=== PATIENT | female | born 1950 | race Caucasian/White ===

== ENCOUNTER 2025-03-18 12:49 | Outpatient (CLI) | payer MEDICARE, MEDICAID, SELFPAY ==
--- NOTE | 2025-03-18 14:06 | ECG_ITS ---
Test Date: 2025-03-18 14:26:55 Measurements Intervals [place] Rate: 51 P: 34 NV: 154 QRS: 24 QRSD: 93 T: 30 QT: 444 QTc: 410 Interpretive Statements SINUS BRADYCARDIA INCOMPLETE RIGHT BUNDLE BRANCH BLOCK BASELINE ARTIFACT- I, II, AVR, AVL, AVF BORDERLINE ECG No previous ECG available for comparison Electronically Signed On 03-18-2025 14:43:54 CDT by Kvng High D.O.
--- OUTSIDE RECORDS SUMMARY | 2025-03-18 14:08 | XMS_ITS | Clinical Summary ---
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 Renal Failure Penicillins Hives,Rash,Unknown Medium 02/13/2014 Propoxyphene Diarrhea,Other (see Comments),Unknown,Vomiti ng Medium 02/13/2014 Medications aspirin EC 81 MG Tablet Delayed Response Take 81 mg by mouth daily. Active atorvastatin (LIPITOR) 40 MG Tablet Take 40 mg by mouth. Active levothyroxine (SYNTHROID) 100 MCG Tablet Take 100 mcg by mouth. 4 Active famotidine (PEPCID) 20 MG Tablet Take 20 mg by mouth. 1 Active lisinopril (PRINIVIL, ZESTRIL) 10 MG Tablet Take 10 mg by mouth daily. Active traMADol (ULTRAM) 50 MG Tablet Take 100 mg by mouth. Active DULoxetine (CYMBALTA) [address] Particles Take 60 mg by mouth. Active ARIPiprazole (ABILIFY) 10 MG Tablet Take 5 mg by mouth. Active metoprolol Succinate (TOPROL-XL) 50 MG TABLET SR 24 HR Take 50 mg by mouth. 5 Active ferrous sulfate (FeroSul) 325 (65 Fe) MG Tablet Take 325 mg by mouth daily. Active folic acid (FOLVITE) 1 MG Tablet Take 1 Tablet by mouth daily. 30 Tablet 1 5 Active Cyanocobalamin 1000 MCG/ML KitIndications :Vitamin B12 Deficiency 1,000 mcg by Injection route See Admin Instructions for 30 days. Indications: Inadequate Vitamin B12 6 Kit 5 02/29/20 25 Active Problems Problem Noted Date Diagnosed Date Iron deficiency anemia 01/01/2025 Hypertension Encounters Date Type Department Care Team Description 01/31/2025 Results Follow-Up [facility] [address] [place] [phone] Roque Roman, DO FOLIC ACID (FOLATE), FERRITIN, IRON W/ IRON BINDING CAPACITY [place], Additional followed-up results: 3 01/29/2025 2:15 PM CDT Lab [facility] [address] [phone] Lab, [facility] Iron deficiency anemia, unspecified iron deficiency anemia type; Anemia due to vitamin B12 deficiency, unspecified B12 deficiency type 01/29/2025 1:30 PM CDT Office Visit [facility] [address] [phone] Kimberlee Luis, GREENHOUSE LABORER, AUTOMOTIVE HEAVY MECHANIC Anemia due to vitamin B12 deficiency, unspecified B12 deficiency type (Primary Dx); Iron deficiency anemia, unspecified iron deficiency anemia type; Chronic fatigue 01/29/2025 Travel 01/08/2025 10:00 AM CDT Clinical Support [facility] [address] [id number] Iron deficiency anemia, unspecified iron deficiency anemia type (Primary Dx) 01/08/2025 Travel 01/03/2025 Results Follow-Up [facility] [address] [place] [phone] Roque Roman, DO FOLIC ACID (FOLATE), VITAMIN B12, IRON W/ IRON BINDING CAPACITY [place], Additional followed-up results: 3 01/03/2025 Telephone [facility] [address] [phone] Roque Roman DO 01/01/2025 2:45 PM CDT Lab [facility] [address] [phone] Lab, Cc [place] Iron deficiency anemia, unspecified iron deficiency anemia type 01/01/2025 2:30 PM CDT Office Visit [facility] [address] [phone] Rqoue Roman DO Iron deficiency anemia, unspecified iron deficiency anemia type (Primary Dx) 01/01/2025 Travel from Last 3 Months Family History Medical History Relation Name Comments Aneurysm Brother Cancer Father Cancer Mother Relation Name Status Comments Brother Father Mother Social History Tobacco Use Types Packs/Day Years Used Date Smoking Tobacco: Never Smokeless Tobacco: Never Tobacco Cessation:Counseling Given: Not Answered Alcohol Use Standard Drinks/Week Comments Not Currently 0 (1 standard drink = 0.6 oz pur e alcohol) Comments Unknown Sex and Gender Information Value Date Recorded Sex Assigned at Not on file 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 Gender Identity Not on file Sexual Orientation Not on file Last Filed Vital Signs Vital Sign Reading Time Taken Comments Blood Pressure 170/98 01/29/2025 1:48 PM CDT Pulse 69 01/29/2025 1:48 PM CDT Temperature 36.7 C (98 F) 01/29/2025 1:48 PM CDT Respiratory Rate 18 01/29/2025 1:48 PM CDT Oxygen Saturation 97% 01/29/2025 1:48 PM CDT Inhaled Oxygen Concentration - - Weight 72.5 kg (159 lb 12.8 oz) 01/29/2025 1:48 PM CDT Height 154.9 cm (5' 1) 01/29/2025 1:48 PM CDT Body Mass Index 30.19 01/29/2025 1:48 PM CDT Plan of Treatment Upcoming Encounters Date Type Department Care Team (Late st Contact Info) Description 03/26/2025 1:30 PM CDT Office Visit [facility] [address] [phone] Roque Roman, DO [address] [place] [address] Health Maintenance Due Date Last Done Comments DEXA Bone Density 1950 Hepatitis C Virus (HCV) Screening 1950 TdaP Immunization 1950 Colonoscopy 1997 Colorectal Cancer Screening 1997 Cologuard 2002 Immunochemical Fecal Occult Blood 2002 Pneumococcal Immunization (5 0+ years) (1 of 1 - PCV) 2002 Zoster Immunization (1 of 2) 2002 SARS-COV-2 Immunization (3 - season) 2024 02/02/2021, 01/05/2021 Mammogram 03/20/2025 03/20/2024, 03/20/2024 Influenza Immunization (Seas on Ended) 2025 07/24/2021 Respiratory Syncytial Virus (RSV) Immunization (Adult) (1 - 1-dose 75+ series) 2027 Hepatitis B Immunization Aged Out No longer eligible based on patient's age to complete this topic Human Papillomavirus (HPV) Immunization Aged Out No longer eligible b ased on patient's age to complete this topic Meningococcal Immunization (ACWY) Aged Out No longer eligible b ased on patient's age to complete this topic Rotavirus Immunization Aged Out No lo nger eligible based on patient's age to complete this topic Procedures Procedure Name Priority Date/Time Associated Diagnosis Comments CBC WITH AUTO DIFF OH Routine 01/29/2025 2:24 PM CDT CMP (COMPREHENSIVE METABOLIC PANEL) Routine 01/29/2025 2:24 PM CDT Iron deficiency anemia, unspecified iron deficiency anemia type Anemia due to vitamin B12 deficiency, unspecified B12 deficiency type VITAMIN B12 Routine 01/29/2025 2:24 PM CDT Iron deficiency anemia, unspecified iron deficiency anemia type Anemia due to vitamin B12 deficiency, unspecified B12 deficiency type IRON W/ IRON BINDING CAPACITY [place] Routine 01/29/2025 2:24 PM CDT Iron deficiency anemia, unspecified iron deficiency anemia type Anemia due to vitamin B12 deficiency, unspecified B12 deficiency type FERRITIN Routine 01/29/2025 2:24 PM CDT Iron deficiency anemia, unspecified iron deficiency anemia type Anemia due to vitamin B12 deficiency, unspecified B12 deficiency type FOLIC ACID (FOLATE) Routine 01/29/2025 2 :24 PM CDT Iron deficiency anemia, unspecified iron deficiency anemia type Anemia due to vitamin B12 deficiency, unspecified B12 deficiency type CBC WITH AUTO DIFF OH Routine 01/01/2025 2:50 PM CDT LACTATE DEHYDROGENASE (LD) Routine 01/01/2025 2:50 PM CDT Iron deficiency anemia, unspecified iron deficiency anemia type FERRITIN Routine 01/01/2025 2:50 PM CDT Iron deficiency anemia, unspecified iron deficiency anemia type IRON W/ IRON BINDING CAPACITY OH Routine 01/01/2025 2:50 PM CDT Iron deficiency anemia, unspecified iron deficiency anemia type VITAMIN B12 Routine 01/01/2025 2:50 PM CDT Iron deficiency anemia, unspecified iron deficiency anemia type FOLIC ACID (FOLATE) Routine 01/01/2025 2 :50 PM CDT Iron deficiency anemia, unspecified iron deficiency anemia type from Last 3 Months Results * IRON W/ IRON BINDING CAPACITY [place] (01/29/2025 2:24 PM CDT) Only the most recent of2 resultswithin the time period is included. IRON 71 50 - 212 ug/dL CANCER FOREMAN/PROJECT MANAGER [facility] UIBC 215 155 - 355 ug/dL CANCER FOREMAN/PROJECT MANAGER [facility] TIBC 286 261 - 478 ug/dl CANCER FOREMAN/PROJECT MANAGER [facility] % Saturation 25 20 - 50 % CANCER FOREMAN/PROJECT MANAGER [facility] 01/29/2025 2:24 PM CDT Narrative CANCER FOREMAN/PROJECT MANAGER [facility] - 01/29/2025 3:09 PM CDT Release to patient->Immediate us Kimberlee Luis APRN, AUTOMOTIVE HEAVY MECHANIC LAB SEND OUTS Final Result CANCER FOREMAN/PROJECT MANAGER [facility] [place] [address], [place] [phone] * (ABNORMAL) CBC WITH AUTO DIFF [place] (01/29/2025 2:24 PM CDT) Only the most recent of2 resultswithin the time period is included. WBC 9.2 4.0 - 10.0 10*3/uL CANCER FOREMAN/PROJECT MANAGER [facility] HGB 13.1 11.2 - 15.7 g/dL CANCER FOREMAN/PROJECT MANAGER [facility] HCT 41.8 34.1 - 44.9 % CANCER FOREMAN/PROJECT MANAGER [facility] PLT 295 163 - 369 10*3/uL CANCER FOREMAN/PROJECT MANAGER [facility] MPV 10.1 9.4 - 12.4 fL CANCER FOREMAN/PROJECT MANAGER [facility] RBC 4.66 3.93 - 5.22 10*6/uL CANCER FOREMAN/PROJECT MANAGER [facility] MCV 90 79 - 95 fL CANCER FOREMAN/PROJECT MANAGER [facility] MCH 28.1 25.6 - 32.2 pg CANCER FOREMAN/PROJECT MANAGER [facility] MCHC 31.3(L) 32.2 - 36.5 g/dL CANCER FOREMAN/PROJECT MANAGER [facility] RDW 19.6(H) 11.6 - 14.4 % CANCER FOREMAN/PROJECT MANAGER [facility] Neutrophils % 66.0 36.0 - 66.0 % CANCER FOREMAN/PROJECT MANAGER [facility] Lymphocytes % 19.8 19.0 - 40.0 % CANCER FOREMAN/PROJECT MANAGER [facility] Monocytes % 10.7 4.1 - 12.1 % CANCER FOREMAN/PROJECT MANAGER [facility] Eosinophils % 2.3 0.0 - 3.5 % CANCER FOREMAN/PROJECT MANAGER [facility] Basophils % 0.9 0.0 - 1.0 % CANCER FOREMAN/PROJECT MANAGER [facility] Absolute Neutrophils 6.0 1.4 - 6.6 10*3/uL CANCER FOREMAN/PROJECT MANAGER [facility] Absolute Lymphocytes 1.8 0.8 - 4.0 10*3/uL CANCER FOREMAN/PROJECT MANAGER [facility] Absolute Monocytes 1.0 0.2 - 1.2 10*3/uL CANCER FOREMAN/PROJECT MANAGER [facility] Absolute Eosinophils 0.2 0.0 - 0.4 10*3/uL CANCER FOREMAN/PROJECT MANAGER [facility] Absolute Basophils 0.1 0.0 - 0.1 10*3/uL CANCER FOREMAN/PROJECT MANAGER [facility] 01/29/2025 2:24 PM CDT us Kimberlee Luis APRN, CNP LAB SEND OUTS Final Result Performing Organization Address [facility] Co de Phone Number [facility]CER FOREMAN/[facility] [place] [address], [place] [phone] * VITAMIN B12 (01/29/2025 2:24 PM CDT) Only the most recent of2 resultswithin the time period is included. Vitamin B12 >1,500 180 - 914 pg/mL [facility] Blood 01/29/2025 2:24 PM CDT Narrative [facility]EM[facility] - 01/31/2025 10:42 AM CDT Release to patient->Immediate Kimberlee Luis APRN, CNP CHEMISTRY ORDERABLES Final Result Performing Organization Address [facility] de Phone Number [facility]CER FOREMAN[facility]PRO[facility] Cancer Care [address] [address], [place] [phone] * (ABNORMAL) FOLIC ACID (FOLATE) (01/29/2025 2:24 PM CDT) Only the most recent of2 resultswithin the time period is included. Folate 5.69(L) >=5.90 ng/mL [facility]EMAN[facility] Blood 01/29/2025 2:24 PM CDT Narrative [facility]EMAN[facility] - 01/31/2025 10:42 AM CDT Release to patient->Immediate IS THE PATIENT REQUIRED TO BE FASTING FOR 12 HOURS?->No us Kimberlee Luis APRN, AUTOMOTIVE HEAVY MECHANIC CHEMISTRY ORDERABLES Final Result Performing Organization Address City/[facility]/ZIP Co de Phone Number CANCER FOREMAN/PRO[facility] [address] [address], [place] [phone] * FERRITIN (01/29/2025 2:24 PM CDT) Only the most recent of2 resultswithin the time period is included. Ferritin 181 11 - 307 ng/mL [facility] Blood 01/29/2025 2:24 PM CDT Narrative [facility] - 01/31/2025 10:42 AM CDT Release to patient->Immediate Kimberlee Luis APRN, AUTOMOTIVE HEAVY MECHANIC CHEMISTRY ORDERABLES Final Result Performing Organization Address [facility] Co de Phone Number [facility] FOREMAN/PROJECT MANAGERCH[facility] Cancer Care [address] [address], [place] [phone] * (ABNORMAL) CMP (COMPREHENSIVE METABOLIC PANEL) (01/29/2025 2:24 PM CDT) Glucose 106(H) 70 - 105 mg/dL [facility] Blood Urea Nitrogen 12 7 - 25 mg/dL [facility] Creatinine 1.1 0.6 - 1.2 mg/dL [facility] Sodium 137 136 - 145 mEq/L [facility] Potassium 3.7 3.5 - 5.1 mEq/L [facility] Chloride 106 98 - 107 mEq/L [facility] Bicarbonate 27 21 - 31 mEq/L [facility] Total Bilirubin 0.4 0.3 - 1.0 mg/dL [facility] Alk. Phosphatase 85 34 - 104 U/L [facility] Aspartate Aminotransferase 13 13 - 39 U/L [facility] Alanine Aminotransferase 12 7 - 52 U/L [facility] Total Protein 6.8 6.4 - 8.9 g/dL [facility] Albumin 4.3 3.5 - 5.7 g/dL [facility] Calcium 9.7 8.6 - 10.3 mg/dL [facility]EM[facility] Anion Gap 7.7 7.0 - 15.0 mEq/L [facility] FOREMAN/PROJECT MANAGERCHI [facility] Globulin 2.5 2.0 - 3.5 g/dL [facility] EGFR 53(L) >60 ml/min/1. 73m2 CANCER FOREMAN/PROJECT MANAGER [facility] Comment: This eGFR is calculated using 2020 CKD-EPI Creatinine equation without race modifier based on the NKF-ASN task force recommendations Equation: tUSU=885*min(SCr/k,1)a*max(SCr/k,1)-1.200*0.9938Age*1.012 (if female), where SCr is serum creatinine, k is 0.7 for females and 0.9 for males, and a is -0.241 for females and -0.302 for males Blood 01/29/2025 2:24 PM CDT Narrative [facility] - 01/29/2025 3:09 PM CDT Release to patient->Immediate IS THE PATIENT REQUIRED TO BE FASTING FOR 8 HOURS?->No Kimberlee Luis APRN, AUTOMOTIVE HEAVY MECHANIC CHEMISTRY ORDERABLES Final Result Performing Organization Address [facility]/ZIP Co de Phone Number [facility] FOREMAN/PROJECT MANAGERCHI [facility] Cancer Care [place] [address] [address] [address], [place] [phone] * (ABNORMAL) LACTATE DEHYDROGENASE (LD) (01/01/2025 2:50 PM CDT) LDH 132(L) 140 - 271 U/L [facility] Blood 01/01/2025 2:50 PM CDT Narrative [facility] - 01/01/2025 4:12 PM CDT Release to patient->Immediate Roque Roman DO CHEMISTRY ORDERABLES Final Res ult CANCER FOREMAN/PRO[facility] Cancer [facility] [place] [address], [place] [phone] from Last 3 Months Insurance MEDICAID [place] MEDICARE C [employer] Care Teams Scuba Diver Relationship Specialty Start Date End Date Deborah Hale MD [address] [place] [id number] PCP - General Family Medicine 12/14/24 Roque Roman DO [address] [place] [phone] Consulting Physician Oncology 12/14/24
[2025-03-18 14:46] LABS: Basophils Absolute Auto 0.1 K/mm3 (0.0-0.1); Basophils Percent Auto 0.8 % (0.2-1.2); Eosinophils Absolute Auto 0.4 K/mm3 (0-0.3); Eosinophils Percent Auto 3.9 % (0-4.4); Hematocrit 39.7 % (37.0-47.0); Hemoglobin 12.4 g/dL (12.0-15.0); Immature Granulocyte Absolute 0.04 K/mm3 (0.00-0.031); Immature Granulocyte Percent A 0.4 % (0-0.5); Lymphocytes Absolute Auto 3.07 K/mm3 (0.9-3.2); Lymphocytes Percent Auto 29.7 % (18.3-44.2); Mean Corpuscular HGB Conc 31.2 g/dl (32-36); Mean Corpuscular Hemoglobin 29.7 pg (26-34); Mean Corpuscular Volume 95.2 fl (80-100); Mean Platelet Volume 10.2 fl (7.4-10.4); Monocytes Absolute Auto 1.2 K/mm3 (0.1-0.6); Monocytes Percent Auto 11.1 % (2.6-8.5); Neutrophils Absolute Auto 5.6 K/mm3 (1.3-6.7); Neutrophils Percent Auto 54.1 % (45.5-73.1); Platelet Count Result 290 k/mm3 (150-375); Red Blood Count 4.17 M/mm3 (4.2-5.4); Red Cell Distribution Width 15.4 % (11.5-14.5); White Blood Count 10.3 K/mm3 (4.5-10.0)
[2025-03-18 14:57] LABS: Hemoglobin A1C 5.3 % (<5.7)
[2025-03-18 15:13] LABS: Urine Cotinine NEGATIVE
[2025-03-18 15:53] LABS: MRSA (PCR) NOT DETECTED (NOT DETECTE)
[2025-03-18 16:05] LABS: Albumin Level 4.1 g/dL (3.5-5.1); Anion Gap 7 mmol/L (4-12); Blood Urea Nitrogen 9 mg/dL (7-17); Calcium 9.6 mg/dL (8.4-10.2); Carbon Dioxide 27 mmol/L (22-30); Chloride 105 mmol/L (98-107); Estimated Glomerular Filt Rate 54; Glucose 85 mg/dL (65-110); Potassium 3.6 mmol/L (3.4-5.0); Sodium 139 mmol/L (137-145)
== END 2025-03-18 12:50 | disposition home or self-care (01) ==
PROVIDERS: PCP Family Medicine; Visit Provider Orthopaedic Surgery
DX: Z01.818 Encounter for other preprocedural examination (principal); M25.562 Pain in left knee; R00.1 Bradycardia, unspecified; I45.19 Other right bundle-branch block
CPT/HCPCS: 80048; 80307; 82040; 83036; 85025; 86850; 86900; 86901; 87641; 93005

== ENCOUNTER → 2025-03-28 00:32 | Day surgery (SDC) | payer MEDICARE, MEDICAID, SELFPAY ==
[2025-03-18 13:20] VITALS: BP 170/78; PULSE 53; RESP 16; TEMP 36.5; O2SAT 97; BMI 30.2
--- NOTE | 2025-03-18 13:41 | PC.NURSE ---
Report to the Outpatient Waiting Room, entrance under the green pavilion located off [facility], at time __8:00AM____ on date ___03/28/25____. Planned Procedure Time: __10:00AM .? Time changes happen often and if your time is changed the preop area will call you the afternoon before. - You and your visitor will be asked to self-screen and do not enter if you have any COVID symptoms. Please call surgeon if you need to reschedule. - A mask is optional within the hospital at this time. Patients may have clear liquids (water, carbonated beverages, clear teas, apple juice) until 3 hours (7:00AM) prior to surgery with a maximum of 20 ounces. - No food from midnight until time of surgery and no smoking, or chewing tobacco (or any form of nicotine). No chewing gum, candy or mints. Take only the following medications with a SIP of water on the morning of surgery: ABILIFY, DULOXETINE, LEVOTHYROXINE MAY TAKE TRAMADOL NEEDED FOR PAIN DO NOT STOP ANY OF YOUR OTHER PRESCRIPTION MEDICATIONS PRIOR TO SURGERY EXCEPT THE FOLLOWING Hold all vitamins and supplements for 3 days per anesthesiologist.- LAST 03/24/25 Please no make-up, nail spanish, hairspray, perfume, deodorant, or body powder the day of surgery.? No jewelry (including any body piercings) or valuables the day of surgery, leave them at home.? Please take a shower or bath the night before, or the morning of, surgery with an antibacterial soap.? Wear comfortable, loose fitting clothing.? - Jewelry must be removed prior to entering the operating room.? Rings and piercings that are not removed may be cut off. - The hospital will not accept responsibility for valuables.? - Please leave all valuables, including medications, at home the day of surgery. If you are going home after surgery, a licensed cement mixer driver must drive you home.? - NO public transportation without another adult if you receive anesthesia. - We recommend that an adult stay with you for 24 hours following discharge. - We also recommend that you do not drive, make important decision, drink alcoholic beverages, or take any drugs that were not prescribed by your health care provider for at least 24 hours after your discharge time. Follow any additional instructions given to you from your surgeon. Telephone instructions given to ____PATIENT and asked if any additional questions and then verbalized understanding. Patient advised to call surgeon office or pre surgery nurse liaison [phone] if any additional questions.
[2025-03-18 14:00] VITALS: BP 174/80
--- OUTSIDE RECORDS SUMMARY | 2025-03-28 00:41 | XMS_ITS | Clinical Summary ---
Author Organization [facility] Address [address] [place] [address] Care Team Providers Care Flower Picker Name Role Phone Deborah Hale MD Primary Care Provider + Deborah Hale MD Unavailable [phone] Quinton Mcneill MD Unavailable [phone] Allergies Active Allergy Reactions Criticality Noted Date Comments Iodine Other (see comment) High 01/02/2021 Patient states she is allergic to contrast dye and causes kidney failure. Propoxyphene Nausea and Vomiting Medium 01/02/2021 Iodine Other (see comment) 08/18/2015 Renal Failure Penicillins Hives,Rash,Unknown Low 02/13/2014 Penicillins Hives Medium 01/02/2021 Propoxyphene Diarrhea,Nausea and Vomiting,Vomiting,Unknown 02/13/2014 Tape Contact Dermatitis 08/23/2018 Paper tape Blisters. Medications * This document contains information received from the source organization and may not represent a complete record from that organization. aspirin EC 81 MG tablet Take 1 tablet (81 mg total) by mouth daily. Active famotidine 20 MG tablet Take 1 tablet (20 mg total) by mouth 2 (two) times a day. 021 Active DULoxetine 60 MG capsule Take 1 capsule (60 mg total) by mouth daily. Active atorvastatin 40 MG tablet Take 1 tablet (40 mg total) by mouth nightly at bedtime. Active traMADol 50 MG tablet Take 2 tablets (100 mg total) by mouth 2 (two) times a day. Active acetaminophen- codeine 300-30 MG tablet as needed. 021 Active levothyroxine (SYNTHROID) 100 MCG tablet Take 1 tablet (100 mcg total) by mouth every morning. 024 Active ARIPiprazole (ABILIFY) 10 MG tablet Take 0.5 tablets (5 mg total) by mouth daily. Active lisinopril (PRINIVIL) 10 MG tablet Take 1 tablet (10 mg total) by mouth daily. Active ferrous sulfate, 65 mg elemental, 325 (65 FE) MG tablet Take 1 tablet (325 mg total) by mouth daily. Active metoprolol succinate ER (TOPROL-XL) 50 MG 24 hr tablet Take 1 tablet (50 mg total) by mouth daily. KEEP UPCOMING PROCEDURE 30 tablet 025 Active Sodium Sulfate-Mag Sulfate-KCl (SUTAB) 0797-343-053 MG TabIndications :Anemia, unspecified type,Dysphagia , unspecified type Take 12 tablets by mouth see administration instructions. Take 12 tablets at 5:00pm the evening before colonoscopy then take 12 tablets at 4:00am morning of colonoscopy. 24 tablet 025 Active Additional Information Patient not taking.Reported on 03/15/2025 metoprolol succinate ER (TOPROL-XL) 50 MG 24 hr tablet TAKE 1 TABLET (50 MG TOTAL) BY MOUTH DAILY. KEEP APPOINTMENT 7 tablet 025 2024 Discontinued Active Problems Problem Noted Date Diagnosed Date Anemia, unspecified type 03/12/2025 DANICA (obstructive sleep apnea) 11/08/2024 Dysphagia, unspecified type 02/09/2024 Constipation, unspecified constipation type 11/2023 Lower abdominal pain 02/09/2024 Achilles tendinitis of left lower extremity 04/10 Plantar fasciitis 05/04/2023 Nonrheumatic aortic valve stenosis 03/12/2021 Lumbar radiculopathy 01/02/2021 Status post right knee replacement 09/10/2020 Status post total hip replacement, right 020 Heartburn 10/10/2016 Overview (04/09/2020): Heartburn Stricture and stenosis of esophagus 10/10/2016 Overview (04/09/2020): Stricture and stenosis of esophagus Primary osteoarthritis of right hip 08/29/2015 Knee pain 08/11/2015 Shoulder pain 08/11/2015 Essential hypertension Dyslipidemia Resolved Problems Problem Noted Date Diagnosed Date Resolved Date Abdominal pain 10/10/2016 02/22/2024 Overview (04/09/2020): Abdominal pain, unspecified site Encounters Date Type Department Care Team Description 03/20/2025 Telephone [facility], [address] [address] Quinton Mcneill MD Information 03/19/2025 Travel 03/19/2025 Telephone [facility], [address] [address] Cornel Cotton MD Schedule Test 03/19/2025 Orders Only [facility], [address] [address] Cornel Cotton MD 03/15/2025 10:00 AM CDT - 03/15/2025 11:59 PM CDT Hospital Encounter [facility] Laboratory [address] [place] [address] Cornel Cotton MD Discharge Disposition: Home or Self Care (Routine Discharge) 03/15/2025 9:15 AM CDT Office Visit [facility] [address] [place] [address] Cornel Cotton MD Consult; Aortic Valve Stenosis; Mitral Valve Disorders 03/15/2025 Results Follow-Up [facility] [address] [place] [address] Mylene Luna, RN PRO BNP ([facility]) 03/15/2025 Travel 03/13/2025 Results Follow-Up [facility] [place] [address] Samantha Tyson RN BASIC METABOLIC PANEL, CBC W/DIFF AUTOMATED 03/12/2025 Telephone [facility] General Surgery [address], [address] [place] [address] Elsi Hartman MD Surgical Clearance 03/12/2025 Orders Only [facility] General [address], [address] [place] [address] Elsi Hartman MD 03/12/2025 Prep for Procedure [facility] General [address], [address] [place] [address] Elsi Hartman MD 03/11/2025 3:00 PM CDT Office Visit [facility] General [address], [address] [place] [address] Elsi Hartman MD Egd; Consult For Colonoscopy (Patient presents for EGD and colonoscopy consult due to anemia. ) 03/11/2025 Travel 03/07/2025 2:22 PM CDT Anesthesia Event [facility] [place] [address] Lei Luna MD Kodwani, Nand K, MD 03/07/2025 10:51 AM CDT - 03/07/2025 11:59 PM CDT Hospital Encounter [facility] [place] [address] Quinton Mcneill MD Discharge Disposition: Home or Self Care (Routine Discharge) 03/07/2025 10:51 AM CDT - 03/07/2025 4:08 PM CDT Hospital Encounter [facility] [place] [address] Ruth Estevez NP-C Quinton Mcneill MD Discharge Disposition: Home or Self Care (Routine Discharge) 03/07/2025 Travel 03/05/2025 Orders Only [facility] [place] [address] Quinton Mcneill MD 01/11/2025 12:45 PM CDT Office Visit [facility], [address] [place] [address] Ruth Estevez NP-C Aortic Valve Stenosis; Hypertension; Obstructive Sleep Apnea 01/11/2025 Travel from Last 3 Months Family History Medical History Relation Comments Cerebral aneurysm Daughter Cause of Cancer Father lung cancer Father Cancer Mother lung cancer Mother Breast Cancer Neg Hx Relation Status Comments Daughter Father (Age 71) Maternal Grandfather Maternal Grandmother Mother (Age 75) Paternal Grandfather Paternal Grandmother Social History Tobacco Use Types Packs/Day Years Used Date Smoking Tobacco: Never Passive Smoke Exposure: Past Smokeless Tobacco: Never Tobacco Cessation:Counseling Given: No Alcohol Use Standard Drinks/Week Comments Not Currently 0 (1 standard drink = 0.6 oz pur e alcohol) AUDIT-C Answer Date Recorded Frequency of Alcohol Consumption Never 08/15/2018 Average Number of Drinks Not on file 018 Frequency of Binge Drinking Not on file 03/2018 PHQ-2 Answer Date Recorded Patient Health Questionnaire-2 Score 0 03/11/2025 Exercise Vital Sign Answer Date Recorde d On average, how many days pe r week do you engage in moderate to strenuous exercise (like a brisk walk)? 0 days 01/02/2021 On average, how many minutes do you engage in exercise at this level? 0 min 01/02/2021 Education Answer Date Recorded What is the highest level of school you have completed or the highest degree you have received? High school graduate 01/02/2021 Comments No Sex and Gender Information Value Date Recorded Sex Assigned at Female 01/11/2023 2:36 PM CDT Legal Sex Female 10:02 PM CDT Gender Identity Female 01/11/2023 2:36 PM CDT Sexual Orientation Straight 01/11/2023 2: 36 PM CDT Occupation Industry Job Start Date Job End Date Not on file Not on file Not on file Not on file retired Not on file Not on file Not on file Last Filed Vital Signs Vital Sign Reading Time Taken Comments Blood Pressure 160/90 03/15/2025 9:06 AM CDT Pulse 59 03/15/2025 9:06 AM CDT Temperature 36.6 C (97.9 F) 03/11/2025 2:32 PM CDT Respiratory Rate 16 03/11/2025 2:32 PM CDT Oxygen Saturation 98% 03/11/2025 2:32 PM CDT Inhaled Oxygen Concentration - - Weight 72.6 kg (160 lb) 03/19/2025 3:55 PM CDT Height 154.9 cm (5' 1) 03/19/2025 3:55 PM CDT Body Mass Index 30.23 03/19/2025 3:55 PM CDT Plan of Treatment Upcoming Encounters Date Type Department Care Team (Latest Contact Info) Description 04/03/2025 2:00 PM CDT Appointment [facility] Ultrasound [address] [place] [address] Cornel Cotton MD [facility]. [address] [place] [address] 04/05/2025 12:00 PM CDT Office Visit [facility] [address] [place] [address] Lo Morris PA [address] [facility], [address] [place] [address] 04/09/2025 8:40 AM CDT Office Visit [facility] [address] [place] [id number] Hu Garibay DO [address] [facility] [address] [place] [address] 07/01/2025 7:30 AM CDT Hospital Encounter [facility] [address] [facility] [place] [place] [address] Elsi Hartman MD [address] [place] [address] [address] [place] [address] 07/01/2025 7:30 AM CDT Anesthesia Event [facility] [address] [place], [place] [address] [place] [address] Kodi Flynn MD [address] [place] [address] [place] [address] 07/01/2025 7:30 AM CDT - 07/01/2025 8:[address] [facility] [address] [place], [place] [address], [place] [address] Elsi Hartman MD [address] [place] [address] [address] [place] [address] EGD WITH DILAT STRICTURE Scheduled Procedures Name Priority Associated Diagnoses Date/Ti me EGD WITH DILAT STRICTURE Anemia, unspecified type Dysphagia, unspecified type 07/01/2025 7:30 AM CDT COLONOSCOPY Anemia, unspecified type Dysphagia, unspecified type 07/01/2025 7:30 AM CDT Health Maintenance Due Date Last Done Comments Colorectal Cancer Screening Colonoscopy (10 Years) 1952 Hepatitis C 1970 DTaP, Tdap and Td Vaccines ( 1 - Tdap) 1971 Pneumococcal Vaccine: 50+ Years (1 of 2 - PCV) 1971 Zoster Vaccines (1 of 2) 2002 RSV Immunization or 60+ Years (1 - Risk 60-74 years 1-dose series) 2012 Annual Medicare Wellness Visit 2017 Dexa Scan (General) 2017 COVID-19 Vaccine (3 - 2023-2 5 season) 2024 02/02/2021, 01/05/2021 Mammogram Screening 03/20/2026 03/20/2024 PHQ-2 (Physician Nice) Completed 03/11/2025 Meningococcal B Vaccine Aged Out No l onger eligible based on patient's age to complete this topic Meningococcal Vaccine Aged Out No kirsten davonte eligible based on patient's age to complete this topic RSV Immunizations Under 20 Months Aged Out No longer eligible b ased on patient's age to complete this topic Goals Goal Patient Goal Type Associated Problems Recent Progress Patient-Stated? Author Return home with Home health, caregivers, and family support General No Yahaira Perez, DATA SECURITY ANALYST Health - patient able to perform ADLs independently General No Yahaira Perez, DATA SECURITY ANALYST Autogenerated Goal Care Plan Autogenerated Problem No Tania Lopez, RN Medical Devices Implanted Type Area Box Finisher Device Identifier Shelf Expiration Date Model / Serial / Lot Component Tibial Triathlon 2 Knee Sterile Latex Free - [id number] Implanted:Qty: 1 on 09/10/2020 by Morgan Watt MD at [facility] Knee Components [employer] 12/13/2024 5536-B-2 00 / 5536-B-3 00 / [id number] Accolade Ii 127 Neck Angle Hip Stem Implanted:Qty: 1 on 04/09/2020 by Morgan Watt MD at [facility] Right: Hip [id number] 10/21/2024 / 6721-033 0 / [id number] Trident Ii Tritanium Clusterhole Acetabular Shell Implanted:Qty: 1 on 04/09/2020 by Morgan Watt MD at [facility] Right: Hip [id number] 10/31/2024 / 702-04-5 0D / [id number] A 6.5mm Low Profile Hex Screw Implanted:Qty: 1 on 04/09/2020 by Morgan Watt MD at [facility] Right: Hip [id number] 03/27/2024 / 7030-653 0 / 4H6 Mdm Liner Cementless Implanted:Qty: 1 on 04/09/2020 by Morgan Watt MD at [facility] Right: Hip [id number] 06/02/2024 / 626-00-3 8D / [id number] Lfit V40 Femoral Head Implanted:Qty: 1 on 04/09/2020 by Morgan Watt MD at [facility] Right: Hip [id number] 11/06/2023 / 6260-9-1 22 / [id number] Mdm X3 Insert For Mdm Liner Implanted:Qty: 1 on 04/09/2020 by Morgan Watt MD at [facility] Right: Hip [id number] 07/04/2024 / 1236-2-2 44 / [id number] Component Femoral 4 Knee Right Cruciate Retain Bead Triathlon Pa - [id number] Implanted:Qty: 1 on 09/10/2020 by Morgan Watt MD at [facility] [employer] [id number] 06/01/2025 5517-F-4 5517-F-4 04 / [id number] Triathlon X3 Tibial Bearing Insert-Cs Implanted:Qty: 1 on 09/10/2020 by Morgan Watt MD at [facility] [id number] 09/26/2024 / 5531-G-3 09-E / [id number] Explanted Type Area Box Finisher Device Identifier Shelf Expiration Date Model / Serial / Lot Pin [place] Bone Brandt 110 X 4 - [id number] Explanted:Qty: 1 on 09/10/2020 by Morgan Watt MD at [facility] Pin [employer] 09/26/2024 [id number] / / [id number] Pin Yusef Bone Brandt 140 X 4 - [id number] Explanted:Qty: 1 on 09/10/[address] [facility] Pin [employer] [id number] / / Pin Yusef Bone Brandt 170 X 4 - [id number] Explanted:Qty: 1 on 04/09/[address] [facility] Right: Hip [employer] [id number] / / Pin [place] Bone Brandt 170 X 4 - [id number] Explanted:Qty: 1 on 04/09/[address] [facility] Right: Hip [employer] [id number] / / Checkpoint Tibial Brandt Surgical - [id number] Explanted:Qty: 1 on 04/09/[address] [facility] Right: Hip [employer] [id number] / / Checkpoint Tibial Brandt Surgical - [id number] Explanted:Qty: 1 on 04/09/[address] [facility] Right: Hip [employer] [id number] / / Procedures Procedure Name Priority Date/Time Associated Diagnosis Comments PRO-BRAIN NATRIURETIC PEPTIDE Routine 03/15/2025 10:04 AM CDT Nonrheumatic aortic valve stenosis PROTHROMBIN TIME, VENOUS STAT 03/07/2025 12:15 PM CDT Nonrheumatic aortic valve stenosis CBC W/DIFF AUTOMATED Routine 03/07/2025 10:56 AM CDT Aortic valve stenosis BASIC METABOLIC PANEL Routine 03/07/2025 10:56 AM CDT Aortic valve stenosis MG SCREENING W ED CRISTIAN DIGI Routine 03/20/2024 1:51 PM CDT Encounter for screening mammogram for malignant neoplasm of breast from Last 3 Months or Most Recently Relevant to Health Maintenance Results * (ABNORMAL) PRO BNP ([facility]) (03/15/2025 10:04 AM CDT) PRO-B TYPE NATRIURETIC PEPTIDE 589(H) <125 PG/ML 03/15/2025 10:44 AM CDT [facility] Comment: CUT POINTS ESTABLISHED BY INTERNATIONAL COLLAB[employer] ON NT PROBNP (ICON) STUDY (2006). AGE INDEPENDENT: <300 PG/ML HAS A 99% NEGATIVE PREDICTIVE VALUE FOR EXCLUDING ACUTE CHF <50 YEARS: >450 PG/ML IS CONSISTENT WITH ACUTE CHF 50-75 YEARS: >900 PG/ML IS CONSISTENT WITH ACUTE CHF >75 YEARS: >1800 PG/ML IS CONSISTENT WITH ACUTE CHF IN PATIENTS WITH RENAL INSUFFICIENCY (GFR <60), >1200 PG/ML YIELDS A DIAGNOSTIC SENSITIVITY AND SPECIFICITY OF 89% AND 72% FOR ACUTE CHF. 03/15/2025 10:0 4 AM CDT Cornel Cotton MD LABORATORY Final Resul t [facility] ([facility] [address] [place] [address], [place] [phone] * PROTIME/INR, VENOUS (03/07/2025 12:15 PM CDT) PROTIME 11.4 10.2 - 12.9 SEC 03/07/2025 1:[address] [facility] INR 1.0 03/07/2025 1:[address] [facility] Comment: Recommended INR Therapeutic Goals: 2.0-3.0 Routine Therapy 2.5-3.5 Mechanical Prosthetic Valves (High Risk) 03/07/2025 12:1 5 PM CDT Quinton Mcneill MD LABORATORY Final Result Performing Organization Address City/[facility] Co de Phone Number [facility] [address] [place] [address], [place] [phone] * (ABNORMAL) BASIC METABOLIC PANEL (03/07/2025 10:56 AM CDT) GLUCOSE 103(H) 70 - 99 MG/DL 03/07/2025 11:[address] [facility] BUN 8 7 - 18 MG/DL 03/07/2025 11:[address] [facility] CREATININE S/P/B 1.07(H) 0.55 - 1.02 MG/DL 03/07/2025 11:[address] [facility] SODIUM S/P/B 140 136 - 145 MMOL/L 03/07/2025 11:[address] [facility] POTASSIUM S/P/B 4.0 3.5 - 5.1 MMOL/L 03/07/2025 11:[address] [facility] CHLORIDE S/P/B 109 97 - 115 MMOL/L 03/07/2025 11:[address] [facility] CO2 26.6 21 - 32 MMOL/L 03/07/2025 11:[address] [facility] CALCIUM S/P/B 9.7 8.5 - 10.1 MG/DL 03/07/2025 11:[address] [facility] ANION GAP 4.4 2 - 10 MMOL/L 03/07/2025 11:[address] [facility] BUN CREATININE RATIO 7.5 6 - 26 03/07/2025 11:[address] [facility] GFR ESTIMATE 55(L) >90 ML/MIN/1.7 3 M2 03/07/2025 11:[address] [facility] Comment: NOTE: eGFR is not calculated for patients <18 years of age or gender unknown. This is an estimated GFR calculation using the new CKD EPI creatinine equation without race and so does not require a correction factor for race. This estimated GFR should not be used for calculating drug doses. 03/07/2025 10:5 6 AM CDT us Quinton Mcneill MD LABORATORY Final Result [facility] [address] [place] [address], [place] [phone] * (ABNORMAL) CBC W/DIFF AUTOMATED (03/07/2025 10:56 AM CDT) WBC 9.47 4.5 - 11.0 x10'3/uL 03/07/2025 11:[address] [facility] RBC 4.45 4.20 - 5.40 x10'6/uL 03/07/2025 11:[address] [facility] HGB 13.1 12.0 - 16.0 G/DL 03/07/2025 11:[address] [facility] HCT 40.8 38.0 - 48.0 % 03/07/2025 11:[address] [facility] MCV 91.7 81.0 - 99.0 FL 03/07/2025 11:[address] [facility] MCH 29.4 27.0 - 31.0 PG 03/07/2025 11:[address] [facility] MCHC 32.1 32.0 - 36.0 G/DL 03/07/2025 11:[address] [facility] RDW 16.5(H) 11.5 - 14.5 % 03/07/2025 11:[address] [facility] PLT 307 130 - 400 x10'3/uL 03/07/2025 11:[address] [facility] MPV 9.9 9.3 - 12.2 FL 03/07/2025 11:[address] [facility] DIFFERENTIAL TYPE AUTOMATED DIFFERENTIAL 03/07/2025 11:[address] [facility] NEUTROPHILS % 60.8 % 03/07/2025 11:[address] [facility] LYMPHOCYTES % 27.0 % 03/07/2025 11:[address] [facility] MONOCYTES % 8.9 % 03/07/2025 11:[address] [facility] EOSINOPHILS 2.5 % 03/07/2025 11:[address] [facility] BASOPHILS 0.6 % 03/07/2025 11:[address] [facility] IMMATURE GRANS % 0.2 % 03/07/20 11:[address] [facility] ABS. NEUTROPHILS 5.75 1.80 - 7.70 x10'3/uL 03/07/2025 11:[address] [facility] ABS. LYMPHOCYTES 2.56 1.00 - 4.80 x10'3/uL 03/07/2025 11:[address] [facility] ABS. MONOCYTES 0.84 0.24 - 0.86 x10'3/uL 03/07/2025 11:[address] [facility] ABS. EOSINOPHILS 0.24 0.04 - 0.36 x10'3/uL 03/07/2025 11:[address] [facility] ABS. BASOPHILS 0.06 0.01 - 0.08 x10'3/uL 03/07/2025 11:[address] [facility] ABS. IMMATURE GRANULOCYTES 0.02 0.00 - 0.49 x10'3/uL 03/07/2025 11:[address] [facility] 03/07/2025 10:5 6 AM CDT us Quinton Mcneill MD LABORATORY Final Result [facility] [address] [place] [address], [place] [phone] * MG SCREENING W ED CRISTIAN DIGI (03/20/2024 1:51 PM CDT) Anatomical Region Laterality Modality Breast Bilateral Mammography 03/20/2024 4:49 PM CDT Impressions 03/20/2024 4:53 PM CDT ===== IMPRESSION: ===== 1. Stable mammographic appearance with no new findings to suggest malignancy in either breast. Assessment: ACR BI-RADS 2 - BENIGN FINDING(S) Recommendation: 1:Routine Screening Bilateral Comments: Ordered By: DEBORAH VICTORIA Interpreted By: Evelia Bolanos, 03/20/2024 4:49 PM Narrative 03/20/2024 4:53 PM CDT EXAMINATION: Digital bilateral screening mammogram with 3-D tomosynthesis EXAM DATE/TIME: 03/20/2024 1:35 PM REASON FOR EXAM: encounter for screening mammogram COMPARISON: 06/13/2018. 09/16/2011. Technique: Digital screening mammography of both breasts was performed in addition to 3-D Tomosynthesis technique. This study was read with the assistance of a computer-aided detection system. Tissue density: There are scattered areas of fibroglandular density. Findings: There is no new focal asymmetry, dominant mass lesion, area of skin thickening, or cluster of suspicious appearing calcifications in either breast to suggest malignancy. Deborah Victoria MD MAMMO Final Re sult from Last 3 Months or Most Recently Relevant to Health Maintenance Additional Health Concerns Active Problems Noted Date Diagnosed Date Autogenerated Problem 03/21/2025 Insurance MEDICAID MEDICAID [facility] Advance Directives * Full Code (Latest Code Status on File) Date Activated Date Inactivated Comments 07/28/2021 10:49 AM 07/28/2021 5:56 PM * Full Code Date Activated Date Inactivated Comments 09/10/2020 2:44 PM 09/12/2020 8:30 PM * Full Code Date Activated Date Inactivated Comments 04/09/2020 1:41 PM 04/13/2020 4:57 PM Care Teams Flower Picker Relationship Specialty Start Date End Date Deborah Hale MD [address] [place] [address] PCP - General FAMILY PRACTICE 01/12/21 Deborah Hale MD [address] [place] [address] 01/12/21 Quinton Mcneill MD [facility]. [address] [address] [place] [employer] CARDIOVASCULAR DISEASE 08/14/18
--- OUTSIDE RECORDS SUMMARY | 2025-03-28 00:41 | XMS_ITS | Encounter Summary ---
Author Organization [facility] Address [facility] [place] [address] Care Team Providers Care Policy And Planning Manager Name Role Phone Deborah Hale MD Primary Care Provider + Deborah Hale MD Primary Care Provider + Deborah Hale MD Unavailable [phone] Quinton Mcneill MD Unavailable [phone] Encounter Details Date Type Department Care Team (Late st Contact Info) Description 03/20/2020 Telephone [facility] Day Services [address] [place] [address] [place] [address] [facility] [address] [place] [address] Social History Tobacco Use Types Packs/Day Years Used Date Smoking Tobacco: Never Smokeless Tobacco: Never Alcohol Use Standard Drinks/Week Comments No 0 (1 standard drink = 0.6 oz pur e alcohol) AUDIT-C Answer Date Recorded Frequency of Alcohol Consumption Never 08/15/2018 Average Number of Drinks Not on file 018 Frequency of Binge Drinking Not on file 03/2018 Comments No Sex and Gender Information Value Date Recorded Sex Assigned at Female 01/11/2023 2:36 PM CDT Legal Sex Female 10:02 PM CDT Gender Identity Female 01/11/2023 2:36 PM CDT Sexual Orientation Straight 01/11/2023 2: 36 PM CDT Occupation Industry Job Start Date Job End Date Not on file Not on file Not on file Not on file COVID-19 Exposure Response Date Recorded In the last month, have you been in contact with someone who was confirmed or suspected to have Coronavirus / COVID-19? No / Unsure 03/17/2020 4:12 PM CDT documented as of this encounter Plan of Treatment Upcoming Encounters Date Type Department Care Team (Latest Contact Info) Description 04/03/2025 2:00 PM CDT Appointment [facility] [address] [place] [address] Cornel Cotton MD Three [facility]. [address] [place] [address] 04/05/2025 12:00 PM CDT [facility] [address] [place] [address] Lo Morris PA 3 [facility], [address] [place] [address] 04/09/2025 8:40 AM CDT Office Visit [facility] Medical Group Multispecialty Care - [facility] [address] [facility] [address] [place] [address] Hu Garibay DO [address] [facility] [address] [place] [address] 07/01/2025 7:30 AM CDT Hospital Encounter [facility] [address] [place] [address] Elsi Hartman MD [address] [place] [address] 07/01/2025 7:30 AM CDT Anesthesia Event [facility] [address] [place] [address] Kodi Flynn MD [address] [place] [address] 07/01/2025 7:30 AM CDT - 07/01/2025 8:33 AM CDT Surgery [facility] [address] [place] [address] Elsi Hartman MD [address] [place] [address] EGD WITH DILAT STRICTURE Scheduled Procedures Name Priority Associated Diagnoses Date/Ti me EGD WITH DILAT STRICTURE Anemia, unspecified type Dysphagia, unspecified type 07/01/2025 7:30 AM CDT COLONOSCOPY Anemia, unspecified type Dysphagia, unspecified type 07/01/2025 7:30 AM CDT documented as of this encounter Visit Diagnoses Not on filedocumented in this encounter Additional Health Concerns Infection Onset Date Last Indicated Resolved Time COVID-19 Rule Out 09/07/2020 09/07/2020 09/08/2020 3:02 PM STATOR PLATE WASHER documented as of this encounter Care Teams Policy And Planning Manager Relationship Specialty Start Date End Date Deborah Hale MD [address] [place] [address] PCP - General 11/18/15 01/11/21 Deborah Hale MD [address] [place] [address] PCP - General FAMILY PRACTICE 01/12/21 Deborah Hale MD [address] [place] [address] 01/12/21 Quinton Mcneill MD Three [facility]. 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
--- OUTSIDE RECORDS SUMMARY | 2025-03-28 00:41 | XMS_ITS | Encounter Summary ---
Author Organization [facility] Address [facility] [place] [address] Care Team Providers Care Order Clerk Name Role Phone Deborah Hale MD Primary Care Provider + Deborah Hale MD Primary Care Provider + Deborah Hale MD Unavailable [phone] Quinton Mcneill MD Unavailable [phone] Encounter Details Date Type Department Care Team (Late st Contact Info) Description 01/16/2019 Abstract [facility] at [address] [address] William Nye MA Social History Tobacco Use Types Packs/Day Years Used Date Smoking Tobacco: Never Smokeless Tobacco: Never Alcohol Use Standard Drinks/Week Comments No 0 (1 standard drink = 0.6 oz pur e alcohol) AUDIT-C Answer Date Recorded Frequency of Alcohol Consumption Never 08/15/2018 Average Number of Drinks Not on file 018 Frequency of Binge Drinking Not on file 03/2018 Comments Unknown Sex and Gender Information Value Date Recorded Sex Assigned at Female 01/11/2023 2:36 PM CDT Legal Sex Female 10:02 PM CDT Gender Identity Female 01/11/2023 2:36 PM CDT Sexual Orientation Straight 01/11/2023 2: 36 PM CDT Occupation Industry Job Start Date Job End Date Not on file Not on file Not on file Not on file documented as of this encounter Plan of Treatment Upcoming Encounters Date Type Department Care Team (Latest Contact Info) Description 04/03/2025 2:00 PM CDT Appointment [facility] [address] [place] [address] Cornel Cotton MD Three [facility]. [address] [place] [address] 04/05/2025 12:00 PM CDT Office Visit [facility] [address] [place] [address] Lo Morris PA 3 [facility], [address] [place] [address] 04/09/2025 8:40 AM CDT Office Visit [facility] Medical Group Multispecialty Care - [facility] 3 [facility] [address] [place] [address] Hu Garibay DO 3 [facility] [address] [place] [address] 07/01/2025 7:30 AM CDT Hospital Encounter [facility] [address] [place] [address] Elsi Hartman MD [address] [facility] 175 [place] [address] 07/01/2025 7:30 AM CDT Anesthesia Event [facility] [address] [facility] [place] [address] Kodi Flynn MD [address] [place] [address] [place] [address] 07/01/2025 7:30 AM CDT - 07/01/2025 8:33 AM CDT Surgery [facility] [address] [place] [address] Elsi Hartman MD [address] [place] [address] EGD WITH DILAT STRICTURE Scheduled Procedures Name Priority Associated Diagnoses Date/Ti me EGD WITH DILAT STRICTURE Anemia, unspecified type Dysphagia, unspecified type 07/01/2025 7:30 AM CDT COLONOSCOPY Anemia, unspecified type Dysphagia, unspecified type 07/01/2025 7:30 AM CDT documented as of this encounter Procedures Procedure Name Priority Date/Time Associated Diagnosis Comments CBC (OUTSIDE LAB) Routine 12/15/2018 COMPREHENSIVE METABOLIC PANEL Routine 12/15/2018 LIPID PANEL Routine 12/15/2018 THYROXINE, FREE (FT4) Routine 12/15/2018 THYROID STIM HORMONE TSH Routine 12/15/2018 VITAMIN D, 25 OH Routine 12/15/2018 documented in this encounter Results * VITAMIN D, 25 OH (12/15/2018) Pathologist [facility] VITAMIN D 25 HYDROXY S/P/B 24 12/15/2018 us Doc [facility]ORAT[facility] Final Result * CBC (OUTSIDE LAB) (12/15/2018) Pathologist [facility] WBC 7.7 HGB 13.6 HCT 41.3 PLT 330 12/15/2018 us Doc [facility] LAB-OUTSIDE/ABSTRACTED Final Result * THYROXINE, FREE (FT4) (12/15/2018) FREE T4 1.27 12/15/2018 us Doc [facility]ORAT[facility] Final Result * THYROID STIM HORMONE, TSH (12/15/2018) TSH 0.489 12/15/2018 us Doc [facility]ORAT[facility] Final Result * LIPID PANEL (12/15/2018) Pathologist [facility] CHOLESTEROL 191 HDL 39 TRIGLYCERIDES 251 NON HDL CHOLESTEROL 152 LDL (CALCULATED) 102 12/15/2018 us Doc [facility]AT[facility] Final Result * (ABNORMAL) COMPREHENSIVE METABOLIC PANEL (12/15/2018) SODIUM S/P/B 144 POTASSIUM S/P/B 3.7 CO2 28 CHLORIDE S/P/B 105 GLUCOSE 87 mg/dL CALCIUM S/P/B 9.4 BUN 14 CREATININE S/P/B 1.23(A) 0.5 - 1.0 EGFR AFR. AMER. 53 <=90 EGFR NON-AFR. AMER. 46 <=90 ALKALINE PHOSPHATASE S/P/B 112 ALT 17 AST 17 BILIRUBIN TOTAL S/P/B 0.5 ALBUMIN S/P/B 3.7 3.5 - 5.0 TOTAL PROTEIN S/P/B 7.3 12/15/2018 us Doc [facility] Final Result documented in this encounter Visit Diagnoses Not on filedocumented in this encounter Additional Health Concerns Infection Onset Date Last Indicated Resolved Time COVID-19 Rule Out 09/07/2020 09/07/2020 09/08/2020 3:02 PM ELEMENTARY SPECIAL EDUCATION TEACHER documented as of this encounter Care Teams Order Clerk Relationship Specialty Start Date End Date Deborah Hale MD [address] [place] [address] PCP - General 11/18/15 01/11/21 Deborah Hale MD [address] [place] [address] PCP - General FAMILY PRACTICE 01/12/21 Deborah Hale MD [address] [place] [address] 01/12/21 Quintno Mcneill MD [facility]. [address] [address] Johnathon Class 1 Owner Operator CARDIOVASCULAR DISEASE 08/14/18 documented as of this encounter
--- OUTSIDE RECORDS SUMMARY | 2025-03-28 00:41 | XMS_ITS | Encounter Summary ---
Author Organization [facility] Address [facility] [place] [address] Care Team Providers Care Refuse Collector Name Role Phone Deborah Hale MD Primary Care Provider + Deborah Hale MD Primary Care Provider + Deborah Hale MD Unavailable [phone] Quinton Mcneill MD Unavailable [phone] Encounter Details Date Type Department Care Team (Late st Contact Info) Description 09/01/2020 Prep for Procedure [facility] One Day Services [address] [place] [address] Morgan Watt MD [address] [address] Social History Tobacco Use Types Packs/Day Years [...] have Coronavirus / COVID-19? No / Unsure 09/03/2020 2:06 PM LICENSED MENTAL HEALTH COUNSELOR documented as of this encounter Functional Status * RETIRED Are you deaf or do you have serious difficulty hearing Answer Date of Assessment Author Status No 04/09/2020 6:44 PM CDT Activ e * RETIRED Are you blind or do you have serious difficulty seeing, even when wearing glasses? Answer Date of Assessment Author Status No 04/09/2020 6:44 PM CDT Activ e * Do you have serious difficulty walking or climbing stairs? Answer Date of Assessment Author Status Yes 04/09/2020 6:44 PM CDT Chari Vargas RN Active * Do you have difficulty dressing or bathing? Answer Date of Assessment Author Status Yes 04/09/2020 6:44 PM CDT Chari Vargas RN Active * Because of a physical, mental, or emotional condition, do you have difficulty doing errands alone such as visiting a doctor's office or shopping? Answer Date of Assessment Author Status Yes 04/09/2020 6:44 PM CDT Chari Vargas RN Active documented as of this encounter Mental Status * Because of a physical, mental, or emotional condition, do you have serious difficulty concentrating, remembering, or making decisions? Answer Entry Date Author Status No 04/09/2020 6:44 PM CDT Chari Vargas RN Active documented in this encounter Plan of Treatment Upcoming Encounters Date Type Department Care Team (Latest Contact Info) Description 04/03/2025 2:00 PM CDT Appointment [facility] [address] [place] [address] Cornel Cotton MD [facility]. [address] [address] 04/05/2025 12:00 PM CDT [facility] [address] [place] [address] Lo Morris PA 3 [facility], [address] [place] [address] 04/09/2025 8:40 AM CDT Office Visit [facility] Medical Group Multispecialty Care - [facility] [address] [facility] [address] [place] [address] Hu Garibay DO [address] [facility] [address] [place] [address] 07/01/2025 7:30 AM CDT Hospital Encounter [facility] OR [address] [place] [address] Elsi Hartman MD [address] [place] [address] [address] [place] [address] 07/01/2025 7:30 AM CDT Anesthesia Event [facility] [address] [place] [address] Kodi Flynn MD [address] [place] [address] [place] [address] 07/01/2025 7:30 AM CDT - 07/01/2025 8:33 AM CDT Surgery [facility] OR [address] [place] [address] Elsi Hartman MD [address] [place] [address] [address] [place], [place] [address] EGD WITH DILAT STRICTURE Scheduled Procedures Name Priority Associated Diagnoses Date/Ti me EGD WITH DILAT STRICTURE Anemia, unspecified type Dysphagia, unspecified type 07/01/2025 7:30 AM CDT COLONOSCOPY Anemia, unspecified type Dysphagia, unspecified type 07/01/2025 7:30 AM CDT documented as of this encounter Goals Goal Patient Goal Type Associated Problems Recent Progress Patient-Stated? Author Return home with Home health, caregivers, and family support General No Mundo Pereznila Espinal, BEZEL CUTTER documented as of this encounter Results * PRE-SURGICAL/PRE-PROCEDURE CORONAVIRUS (COVID 19) (09/07/2020 9:16 AM LICENSED MENTAL HEALTH COUNSELOR) CORONAVIRUS SARS COV 2 PCR (RESP) NOT DETECTED NOT DETECTED 09/08/2020 3:01 PM LICENSED MENTAL HEALTH COUNSELOR [employer] [facility] Comment: A Not Detected (negative) test result for this test means that SARS- CoV-2 RNA was not present in the specimen above the limit of detection. A negative result does not rule out the possibility of COVID-19 and should not be used as the sole basis for treatment or patient management decisions. If COVID-19 is still suspected, based on exposure history together with other clinical findings, re-testing should be considered in consultation with public health authorities. Laboratory test results should always be considered in the context of clinical observations and epidemiological data in making a final diagnosis and patient management decisions. Please review the Fact Sheets and FDA authorized labeling available for health care providers and patients using the following websites: https://www.[employer].Remark/home/Covid-19/HCP/NAAT/fact-sheet2 https://www.[employer].Remark/home/Covid-19/Patients/NAAT/ fact-sheet2 This test has been authorized by the FDA under an Emergency Use Authorization (EUA) for use by authorized laboratories. Due to the current public health emergency, [facility] is receiving a high volume of samples from a wide variety of swabs and media for COVID-19 testing. In order to serve patients during this public health crisis, samples from appropriate clinical sources are being tested. Negative test results derived from specimens received in non-commercially manufactured viral collection and transport media, or in media and sample collection kits not yet authorized by FDA for COVID-19 testing should be cautiously evaluated and the patient potentially subjected to extra precautions such as additional clinical monitoring, including collection of an additional specimen. Methodology: Nucleic Acid Amplification Test (NAAT) includes RT-PCR or TMA Additional information about COVID-19 can be found at the [facility] website: www.[employer].Remark/Covid19. Test performed at [facility] [address] [address] [facility] [place] [address] Director: LAVERNE EUGENE DO,MPH FIRST TEST NO 09/07/2020 9:06 AM [facility] EMPLOYED IN HEALTHCARE NO 09/07/2020 9:06 AM [facility] SYMPTOMATIC DEFINED BY CDC NO 09/07/2020 9:06 AM [facility] DATE OF SYMPTOM ONSET UNKNOWN 09/07/2020 10:20 AM [facility] HOSPITALIZATION STATUS NO 09/07/2020 9:06 AM [facility] PATIENT IN ICU NO 09/07/2020 9:06 AM [facility] RESIDENT OF [facility] NO 09/07/2020 9:06 AM [facility] UNKNOWN 09/07/2020 10:20 AM [facility] PATIENT'S RACE WHITE OR 09/07/2020 9:06 AM [facility] ETHNICITY NONHISPANIC 09/07/2020 9:06 AM [facility] SOURCE (QST) NASOPHARYNGEAL SWAB 09/07/2020 9:06 AM [facility] NASOPHARYNGEAL SWAB / Unknown 09/07/2020 9:16 AM LICENSED MENTAL HEALTH COUNSELOR us Morgan Watt MD MICROBIOLOGY - GENERAL ORDERA BLES Final Result [facility] [address] [place] [address], [place] [phone] [facility] [address] [place] [address], documented in this encounter Visit Diagnoses Diagnosis Preop testing- Primary Preoperative examination, unspecified Anemia, unspecified type Dysphagia, unspecified type documented in this encounter Additional Health Concerns Infection Onset Date Last Indicated Resolved Time COVID-19 Rule Out 09/07/2020 09/07/2020 09/08/2020 3:02 PM LICENSED MENTAL HEALTH COUNSELOR documented as of this encounter Care Teams Refuse Collector Relationship Specialty Start Date End Date Deborah Hale MD [address] [place] [address] PCP - General 11/18/15 01/11/21 Deborah Hale MD [address] [place] [address] PCP - General FAMILY PRACTICE 01/12/21 Deborah Hale MD [address] [place] [address] 01/12/21 Quinton Mcneill MD [facility]. [address] [address] Murray Auto Transmission Mechanic CARDIOVASCULAR DISEASE 08/14/18 documented as of this encounter
--- OUTSIDE RECORDS SUMMARY | 2025-03-28 00:41 | XMS_ITS | Encounter Summary ---
Author Organization [facility] Address [facility] [place] [address] Care Team Providers Care Telegraph Inspector Name Role Phone Deborah Hale MD Primary Care Provider + Deborah Hale MD Unavailable [phone] Quinton Mcneill MD Unavailable [phone] Encounter Details Date Type Department Care Team (Late st Contact Info) Description 03/13/2025 Results Follow-Up [facility] [place] [address] Samantha Tyson, [place] [address] BASIC METABOLIC PANEL, CBC W/DIFF AUTOMATED Social History Tobacco Use Types Packs/Day Years Used Date Smoking Tobacco: Never Passive Smoke Exposure: Past Smokeless Tobacco: Never Alcohol Use Standard Drinks/Week Comments Not Currently [...] on file documented as of this encounter Functional Status [...] Assessment Author Status Yes 04/09/2020 6:44 PM MARKT Chari Vargas RN Active * Because of a physical, mental, or emotional condition, do you have difficulty doing errands alone such as visiting a doctor's office or shopping? Answer Date of Assessment Author Status Yes 04/09/2020 6:44 PM MARKT Chari Vargas RN Active documented as of this encounter Mental Status * Because of a physical, mental, or emotional condition, do you have serious difficulty concentrating, remembering, or making decisions? Answer Entry Date Author Status No 04/09/2020 6:44 PM MARKT Chari Vargas RN Active documented in this encounter Plan of Treatment Upcoming Encounters Date Type Department Care Team (Latest Contact Info) Description 04/03/2025 2:00 PM CDT Appointment [facility] [address] [place] [address] Cornel Cotton MD [place] [address] [place] [address] 04/05/2025 12:00 PM CDT Office Visit [facility] [address] [place] [address] Lo Morris PA 3 [facility], [address] [place] [address] 04/09/2025 8:40 AM CDT Office Visit [facility] Medical Group Multispecialty Care - [facility] [address] [place] [address] Hu Garibay DO 3 [facility] [address] [place] [address] 07/01/2025 7:30 AM CDT Hospital Encounter [facility] [address] [place] [address] Elsi Hartman MD [address] [place] [address] 07/01/2025 7:30 AM CDT Anesthesia Event [facility] [address] [place] [address] Kodi Flynn MD [address] [place] [address] [place] [address] 07/01/2025 7:30 AM CDT - 07/01/2025 8:33 AM CDT Surgery [facility] [address] [place] [address] Elsi Hartman MD [address] [place] [address] 175 [place] [address] EGD WITH DILAT STRICTURE Scheduled Procedures Name [...] and family support General No Yahaira Perez, DIRECTOR [employer] Health - patient able to perform ADLs independently General No Yahaira Perez, DIRECTOR [employer] Autogenerated Goal Care Plan Autogenerated Problem No Tania Lopez RN documented as of this encounter Visit Diagnoses Not on filedocumented in this encounter Additional Health Concerns Active Problems Noted Date Diagnosed Date Autogenerated Problem 03/21/2025 Assessment Noted Time PHQ-9 Depression Total Score: 0 03/11/20 25 2:31 PM CDT documented as of this encounter Care Teams Telegraph Inspector Relationship Specialty Start Date End Date Deborah Hale MD [address] [place] [address] PCP - General FAMILY PRACTICE 01/12/21 Deborah Hale MD [address] [place] [address] 01/12/21 Quinton Mcneill MD [facility]. [address] [address] [place] Medical Staff Director CARDIOVASCULAR DISEASE 08/14/18 documented as of this encounter
--- OUTSIDE RECORDS SUMMARY | 2025-03-28 00:41 | XMS_ITS | Encounter Summary ---
Author Organization [facility] Address [facility] [place] [address] Care Team Providers Care Grinder Set Up Operator Jig Name Role Phone Deborah Hale MD Primary Care Provider + Deborah Hale MD Primary Care Provider + Deborah Hale MD Unavailable [phone] Quinton Mcneill MD Unavailable [phone] Encounter Details Date Type Department Care Team (Late st Contact Info) Description 04/15/2020 Telephone [facility] Med/Surg [address] [place] [address] Dorcas Jenkins CNA Social History Tobacco Use Types Packs/Day Years [...] have Coronavirus / COVID-19? No / Unsure 04/18/2020 4:24 PM CDT documented as of this encounter Functional Status [...] Info) Description 04/03/2025 2:00 PM CDT Appointment [facility] [address] [place] [address] Cornel Cotton MD Three [facility]. [address] [place] [address] 04/05/2025 12:00 PM CDT [facility] [address] [place] [address] Lo Morris PA [address] [facility] [place] [address] 04/09/2025 8:40 AM CDT Office Visit [facility] Multispecialty Care - [facility] [address] [place] [address] Hu Garibay DO 3 [facility] [address] [place] [address] 07/01/2025 7:30 AM CDT Hospital Encounter [facility] [address] [place] [address], [place] [address] Elsi Hartman MD [address] [place] [address] [address] [place] [address] 07/01/2025 7:30 AM CDT Anesthesia Event [facility] [address] [place] [address], [place] [address] Kodi Flynn MD [address] [place] [address] [place] [address] 07/01/2025 7:30 AM CDT - 07/01/2025 8:33 AM CDT Surgery [facility] [address] [place] [address] [place] [address] Elsi Hartman MD [address] [place] [address] [address] [place] [address] EGD WITH DILAT STRICTURE Scheduled Procedures Name [...] family support General No Mundo Pereznila Espinal, DATABASE ADMINISTRATOR documented as of this encounter Visit Diagnoses Not on filedocumented in this encounter Additional Health Concerns Infection Onset Date Last Indicated Resolved Time COVID-19 Rule Out 09/07/2020 09/07/2020 09/08/2020 3:02 PM PRINTER 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 [address] [address] [place] Director CARDIOVASCULAR DISEASE 08/14/18 documented as of this encounter
--- OUTSIDE RECORDS SUMMARY | 2025-03-28 00:41 | XMS_ITS | Encounter Summary ---
Author Organization [facility] Address [facility] [place] [address] Care Team Providers Care Buffer Nickel Name Role Phone Deborah Hale MD Primary Care Provider + Deborah Hale MD Unavailable [phone] Quinton Mcneill MD Unavailable [phone] Encounter Details Date Type Department Care Team (Late st Contact Info) Description 03/15/2025 Results Follow-Up [facility] [address] [phone] Mylene Luna, RN PRO BNP ([facility]) Social History Tobacco Use Types Packs/Day Years [...] Info) Description 04/03/2025 2:00 PM CDT Appointment [facility] [address] [place] [address] Cornel Cotton MD [facility]. [facility] [address] [place], [place] [address] 04/05/2025 12:00 PM CDT Office Visit [facility] [address] [place] [address] Lo Morris PA 3 [facility], [address] [place] [address] 04/09/2025 8:40 AM CDT Office Visit [facility] Medical Group Multispecialty Care - [facility] [address] [facility] [address] [place] [address] Hu Garibay DO 3 [facility] [address] [place] [address] 07/01/2025 7:30 AM CDT Hospital Encounter [facility] [address] [place] [address] Elsi Hartman MD [address] [place] [address] 07/01/2025 7:30 AM CDT Anesthesia Event [facility] [address] [place] [address] Kodi Flynn MD [address] [place] [address] [place] [address] 07/01/2025 7:30 AM CDT - 07/01/2025 8:33 AM CDT Surgery [facility] [address] [place] [address] Elsi Hartman MD [address] [place] [address] [address] [place] [address] EGD WITH DILAT STRICTURE Scheduled Procedures Name [...] and family support General No Yahaira Perez, PROCESS LEAD Health - patient able to perform ADLs independently General No Yahaira Perez, PROCESS LEAD Autogenerated Goal Care Plan Autogenerated Problem No Tania Lopez RN documented as of this encounter Visit Diagnoses Not on filedocumented in this encounter Additional Health Concerns Active Problems Noted Date Diagnosed Date 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. [address] [address] [place] Plant Puller CARDIOVASCULAR DISEASE 08/14/18 documented as of this encounter
--- OUTSIDE RECORDS SUMMARY | 2025-03-28 00:41 | XMS_ITS | Encounter Summary ---
Author Organization [facility] Address [place] [address] Care Team Providers Care Armament Mechanic Name Role Phone Deborah Hale MD Primary Care Provider + Deborah Hale MD Unavailable [phone] Quinton Mcneill MD Unavailable [phone] Encounter Details Date Type Department Care Team (Late st Contact Info) Description 07/27/2021 Hospital Orders Only [facility] [place] [address] Cornel Cotton MD Three [facility]. [address] [place] [address] Social History Tobacco Use Types Packs/Day Years Used Date Smoking Tobacco: Never Smokeless Tobacco: Never Alcohol Use Standard Drinks/Week Comments Not Currently 0 (1 standard drink = 0.6 oz pur e alcohol) AUDIT-C Answer Date Recorded Frequency of Alcohol Consumption Never 08/15/2018 Average Number of Drinks Not on file 018 Frequency of Binge Drinking Not on file 03/2018 Exercise Vital Sign Answer Date Recorde d [...] have Coronavirus / COVID-19? No / Unsure 07/28/2021 6:27 AM CDT documented as of this encounter Functional [...] PM CDT Chari Vargas RN Active * Calculated C-SSRS Risk Score (Lifetime/Recent) Answer Date of Assessment Author Status No Risk Indicated 07/28/2021 8:25 AM CDT Chuck Brody Active * Carbon Suicide Severity Rating Scale (Screener/Recent Self-Report) Question Answer Date of Assessment Author Status 1. Wish to be (Past 1 Month) No 07/28/2021 8:25 AM CDT Niraj Brody Active 2. Non-Specific Active Suicidal Thoughts (Past 1 Month) No 07/28/2021 8:25 AM CDT Niraj Brody Active 6. Suicidal Behavior (Lifetime) No 07/28/2021 8:25 AM CDT Niraj Brody Active documented as of this encounter Mental [...] Info) Description 04/03/2025 2:00 PM CDT Appointment [facility] [address] [place] [address] Cornel Cotton MD Three [facility]. [address] [place] [address] 04/05/2025 12:00 PM CDT Office Visit [facility] [address] [place] [address] Lo Morris PA 3 [facility], [address] [place] [address] 04/09/2025 8:40 AM CDT Office Visit [facility] Medical Group Multispecialty Care - [facility] [address] [facility] [address] [place] [address] Hu Garibay DO [address] [facility] [address] [place] [address] 07/01/2025 7:30 AM CDT Hospital Encounter [facility] [address] [place], [place] [address] Elsi Hartman MD [address] [place] [address] 07/01/2025 7:30 AM CDT Anesthesia Event [facility] [address] [facility] [place] [address] Kodi Flynn MD [address] [place] [address] 07/01/2025 7:30 AM CDT - 07/01/2025 8:33 AM CDT Surgery [facility] [address] [facility] [place] [address] Elsi Hartman MD 9515 [facility] 175 [place] [address] EGD WITH DILAT STRICTURE Scheduled Procedures Name [...] and family support General No Yahaira Perez, TRAFFIC COORDINATOR Health - patient able to perform ADLs independently General No Yahaira Perez, TRAFFIC COORDINATOR documented as of this encounter Visit Diagnoses Not on filedocumented in this encounter Care Teams Armament Mechanic Relationship Specialty Start Date End Date Deborah Hale MD [address] [place], [place] [phone] PCP - General FAMILY PRACTICE 01/12/21 Deborah Hale MD [address] [place] [phone] 01/12/21 Quinton Mcneill MD [facility]. [address] [place] [address] [place] Boiler Tube Blower CARDIOVASCULAR DISEASE 08/14/18 documented as of this encounter
--- OUTSIDE RECORDS SUMMARY | 2025-03-28 00:41 | XMS_ITS | Encounter Summary ---
Author Organization [facility] Address [facility] [place] [address] Care Team Providers Care Multineedle Shirrer Name Role Phone Deborah Hale MD Primary Care Provider + Deborah Hale MD Primary Care Provider + Deborah Hale MD Unavailable [phone] Quinton Mcneill MD Unavailable [phone] Encounter Details Date Type Department Care Team (Late st Contact Info) Description 03/18/[address] [facility] [address] [place] [address] [place] [address] [place] [address] Social History Tobacco Use Types Packs/Day [...] Info) Description 04/03/2025 2:00 PM CDT Appointment [facility] [address] [place] [address] Cornel Cotton MD Three [facility]. [address] [place] [address] 04/05/2025 12:00 PM CDT Office Visit [facility] [address] [place] [address] Lo Morris PA 3 [facility], [address] [place] [address] 04/09/2025 8:40 AM CDT Office Visit [facility] Medical [facility] Multispecialty Care - [facility] [address] [place] [address] Hu Garibay DO 3 [facility] [facility] [address] [place] [address] 07/01/2025 7:30 AM CDT Hospital Encounter [facility] [address] [place] [address] Elsi Hartman MD 9515 [facility] [address] [place] [address] 07/01/2025 7:30 AM CDT Anesthesia Event [facility] [address] [place] [address] Kodi Flynn MD [address] [place] [address] 07/01/2025 7:30 AM CDT - 07/01/2025 8:33 AM CDT Surgery [facility] [address] [place] [address] Elsi Hartman MD [address] [place], [place] [phone] EGD WITH DILAT STRICTURE Scheduled Procedures Name Priority Associated Diagnoses Date/Ti me EGD WITH DILAT STRICTURE Anemia, unspecified type Dysphagia, unspecified type 07/01/2025 7:30 AM CDT COLONOSCOPY Anemia, unspecified type Dysphagia, unspecified type 07/01/2025 7:30 AM CDT documented as of this encounter Results * ECG 12 lead (03/31/2020 9:29 AM CDT) 03/31/2020 9:29 AM CDT Narrative [facility] RAD - 03/31/2020 4:23 PM CDT [facility] Test Date: 2020-03-31 Pat Name: ANIYA BRAUN Department: Room: Gender: Female Patient Manager: : 1950 Requested By: PINO RAMIRES Order Number: [id number] Reading MD: Binu Duarte Measurements Intervals Davison Rate: 62 P: 25 VT: 155 QRS: 77 QRSD: 97 T: 34 QT: 413 QTc: 423 Interpretive Statements SINUS RHYTHM INCOMPLETE RIGHT BUNDLE BRANCH BLOCK [90+ ms QRS DURATION, TERMINAL R IN V1/V2, 40+ ms S IN I/aVL/V4/V5/V6] Compared to ECG 03/26/2020 12:18:14 Incomplete right bundle-branch block now present Procedure Note Binu Duarte MD - 03/31/2020 [facility] Test Date: 2020-03-31 Pat Name: ANIYA BRAUN Department: Room: Gender: Female Patient Manager: : 1950 Requested By: PINO RAMIRES Order Number: [id number] Reading MD: Binu Duarte Measurements Intervals Davison Rate: 62 P: 25 VT: 155 QRS: 77 QRSD: 97 T: 34 QT: 413 QTc: 423 Interpretive Statements SINUS RHYTHM INCOMPLETE RIGHT BUNDLE BRANCH BLOCK [90+ ms QRS DURATION, TERMINAL RIN V1/V2, 40+ ms S IN I/aVL/V4/V5/V6] Compared to ECG 03/26/2020 12:18:14 Incomplete right bundle-branch block now present us Pino Ramires MD ECG ORDERABLES Final Resul t [facility] RAD * (ABNORMAL) URINALYSIS WI REFLEX TO CULTURE (03/31/2020 8:41 AM CDT) COLOR (U) YELLOW 03/31/2020 10:52 AM CDT [facility] TRANSPARENCY CLEAR 03/31/2020 10:52 AM CDT [facility] SPECIFIC GRAVITY (U) 1.015 1.000 - 1.030 03/31/2020 10:52 AM CDT [facility] U PH 6.0 5.0 - 9.0 03/31/2020 10:52 AM CDT [facility] LEUKOCYTES (U) TRACE(A) NEGATIVE 03/31/2020 10:52 AM CDT [facility] NITRITES NEGATIVE NEGATIVE 03/31/2020 10:52 AM CDT [facility] PROTEIN (U) NEGATIVE NEGATIVE 03/31/2020 10:52 AM CDT [facility] URINE GLUCOSE NEGATIVE NEGATIVE 03/31/2020 10:52 AM CDT [facility] KETONES MG/DL (U) NEGATIVE NEGATIVE 03/31/2020 10:52 AM CDT [facility] BILIRUBIN (U) NEGATIVE NEGATIVE 03/31/2020 10:52 AM CDT [facility] BLOOD (U) NEGATIVE NEGATIVE 03/31/2020 10:52 AM CDT [facility] WBC/HPF 0-5 0 - 5 /HPF 03/31/2020 10:52 AM CDT [facility] RBC/HPF NONE SEEN 0 - 5 /HPF 03/31/2020 10:52 AM CDT [facility] EPI/HPF FEW /HPF 03/31/2020 10:52 AM CDT [facility] CULTURE & SENSITIVITY INDICATED? CULTURE IS NOT INDICATED 03/31/2020 10:52 AM T [facility] URINE SPECIMEN OBTAINED BY CLEAN CATCH PROCEDURE / Unknown 03/31/2020 8:41 AM CDT us Pino Ramires MD URINE ORDERABLES Final Resu lt Performing Organization Address City/State/[facility] Co de Phone Number [facility] [address] [place] [address], * MRSA SCREENING (03/31/2020 8:41 AM CDT) SPEC DESCRIPTION NASAL 03/31/2020 8:31 AM CDT [facility] SPECIAL REQUESTS NO SPECIAL REQUEST 03/31/2020 8:31 AM T [facility] CULTURE RESULT NO METHICILLIN RESISTANT STAPHYLOCOCCUS AUREUS ISOLATED 04/01/2020 8:57 AM CDT [facility] SPECIMEN FROM INTERNAL NOSE / Unknown 03/31/2020 8:41 AM CDT 03/31/2020 8:42 AM CDT us Pino Ramires MD MICROBIOLOGY - GENERAL JENNIFER ELISE Final Result [facility] [address] [place] [address], [place] [phone] * (ABNORMAL) CBC, AUTO, NO DIFF (03/31/2020 8:41 AM CDT) WBC 8.0 4.4 - 11.0 x10'3/uL 03/31/2020 9:11 AM CDT [facility] RBC 3.81(L) 4.50 - 5.10 x10'6/uL 03/31/2020 9:11 AM CDT [facility] HGB 11.2(L) 12.3 - 15.3 G/DL 03/31/2020 9:11 AM CDT [facility] HCT 35.1(L) 35.9 - 44.6 % 03/31/2020 9:11 AM CDT [facility] MCV 92.1 80.0 - 96.0 FL 03/31/2020 9:11 AM CDT [facility] MCH 29.4 25.3 - 30.9 PG 03/31/2020 9:11 AM CDT [facility] MCHC 31.9 31.0 - 34.1 G/DL 03/31/2020 9:11 AM CDT [facility] RDW 13.1 12.4 - 15.1 % 03/31/2020 9:11 AM CDT [facility] PLT 297 151 - 353 x10'3/uL 03/31/2020 9:11 AM CDT [facility] MPV 10.3 9.6 - 12.0 FL 03/31/2020 9:11 AM CDT [facility] 03/31/2020 8:41 AM CDT us Pino Ramires MD LABORATORY Final Resul t [facility] [address] [place] [address], [place] [phone] * (ABNORMAL) BASIC METABOLIC PANEL (03/31/2020 8:41 AM CDT) Pathologist [facility] GLUCOSE 90 70 - 99 MG/DL 03/31/2020 9:31 AM CDT [facility] BUN 14 7 - 18 MG/DL 03/31/2020 9:31 AM CDT [facility] CREATININE S/P/B 1.44(H) 0.55 - 1.02 MG/DL 03/31/2020 9:31 AM CDT [facility] SODIUM S/P/B 142 136 - 145 MMOL/L 03/31/2020 9:31 AM CDT [facility] POTASSIUM S/P/B 3.7 3.5 - 5.1 MMOL/L 03/31/2020 9:31 AM T [facility] CHLORIDE S/P/B 105 100 - 108 MMOL/L 03/31/2020 9:31 AM CDT [facility] CO2 30.9 21 - 32 MMOL/L 03/31/2020 9:31 AM CDT [facility] CALCIUM S/P/B 9.1 8.5 - 10.1 MG/DL 03/31/2020 9:31 AM CDT [facility] ANION GAP 6.1 5 - 15 MMOL/L 03/31/2020 9:31 AM CDT [facility] BUN CREATININE RATIO 9.7 6 - 26 03/31/2020 9:31 AM CDT [facility] EGFR NON-AFR. AMER. 37(L) >90 ML/MIN/1.7 3 M2 03/31/2020 9:31 AM CDT [facility] EGFR AFR. AMER. 43(L) >90 ML/MIN/1.7 3 M2 03/31/2020 9:31 AM CDT [facility] Comment: NOTE: eGFR is not calculated for patients <18 years of age. This is an estimated GFR (CKD EPI) and should not be used for calculating drug doses. 03/31/2020 8:41 AM CDT us Pino Ramires MD LABORATORY Final Resul t [facility] [address] [facility] [address], documented in this encounter Visit Diagnoses Diagnosis Pre-op testing- Primary Preoperative examination, unspecified Pre-op testing Preoperative examination, unspecified Anemia, unspecified type Dysphagia, unspecified type documented in this encounter Additional Health Concerns Infection Onset Date Last Indicated Resolved Time COVID-19 Rule Out 09/07/2020 09/07/2020 09/08/2020 3:02 PM COMPUTER SCIENCE INTERN documented as of this encounter Care Teams Multineedle Shirrer Relationship Specialty Start Date End Date Deborah Hale MD [address] [place] [address] PCP - General 11/18/15 01/11/21 Deborah Hale MD [address] [place] [address] PCP - General FAMILY PRACTICE 01/12/21 Deborah Hale MD [address] [place] [address] 01/12/21 Quinton Mcneill MD [facility]. [address] [place] [address] Minerva Jointer Submarine Cable CARDIOVASCULAR DISEASE 08/14/18 documented as of this encounter
--- OUTSIDE RECORDS SUMMARY | 2025-03-28 00:41 | XMS_ITS | Encounter Summary ---
Author Organization [facility] Address [facility] [place] [address] Care Team Providers Care Jet Operator Name Role Phone Deborah Hale MD Primary Care Provider + Deborah Hale MD Primary Care Provider + Deborah Hale MD Unavailable [phone] Quinton Mcneill MD Unavailable [phone] Encounter Details Date Type Department Care Team (Late st Contact Info) Description 08/13/2017 Abstract [place] [facility] [place] [address] , Generic ConversionMD Social History Tobacco Use Types Packs/Day Years Used Date Smoking Tobacco: Never Comments Unknown Sex and Gender Information Value Date Recorded Sex Assigned at Female 01/11/2023 2:36 PM CDT Legal Sex Female 10:02 PM CDT Gender Identity Female 01/11/2023 2:36 PM CDT Sexual Orientation Straight 01/11/2023 2: 36 PM CDT documented as of this encounter Plan of Treatment Upcoming Encounters Date Type Department Care Team (Latest Contact Info) Description 04/03/2025 2:00 PM CDT Appointment [facility] [address] [place] [address] Cornel Cotton MD Three [facility]. [address] [place] [address] 04/05/2025 12:00 PM CDT Office Visit [facility] [address] [place] [address] Lo Morris PA 3 [facility], [address] [place] [address] 04/09/2025 8:40 AM CDT Office Visit [facility] Medical Group Multispecialty Care - [facility] [address] [facility] [address] [place] [address] Hu Garibay DO 3 [facility] [address] [place] [address] 07/01/2025 7:30 AM CDT Hospital Encounter [facility] [address] [place] [address] Elsi Hartman MD [address] [place] [address] 07/01/2025 7:30 AM CDT Anesthesia Event [facility] [address] [place] [address] Kodi Flynn MD [address] [place] [address] [place] [address] 07/01/2025 7:30 AM CDT - 07/01/2025 8:33 AM CDT Surgery [facility] [address] [place] [address], [place] [address] Elsi Hartman MD [address] [place] [address] [address] [place] [address] EGD WITH DILAT STRICTURE Scheduled Procedures Name [...] Rule Out 09/07/2020 09/07/2020 09/08/2020 3:02 PM NEW PRODUCT TRAINER documented as of this encounter Care Teams Jet Operator Relationship Specialty Start Date End Date Deborah Hale MD [address] [place] [address] PCP - General 11/18/15 01/11/21 Deborah Hale MD [address] [place] [address] PCP - General FAMILY PRACTICE 01/12/21 Deborah Hale MD [address] [place] [address] 01/12/21 Quinton Mcneill MD [facility]. [address] [address] [employer] Qa Analyst CARDIOVASCULAR DISEASE 08/14/18 documented as of this encounter
--- OUTSIDE RECORDS SUMMARY | 2025-03-28 00:41 | XMS_ITS | Clinical Summary ---
Author Organization [facility] Address [address], [address] [place] [address] Phone Care Team Providers Care Loan Administrator Name Role Phone Deborah Hale MD Primary Care Provider + Roque Roman DO Unavailable [phone] Allergies Active Allergy Reactions Criticality Noted Date [...] Inadequate Vitamin B12 6 Kit 5 02/29/20 Active Problems Problem Noted Date Diagnosed Date Iron deficiency anemia 01/01/2025 Hypertension Encounters Date Type Department Care Team Description 03/26/2025 1:45 PM CDT Lab [facility] [address] [phone] Lab, [facility] [place] Anemia due to vitamin B12 deficiency, unspecified B12 deficiency type; Iron deficiency anemia, unspecified iron deficiency anemia type 03/26/2025 1:30 PM CDT Office Visit [facility] [address] [phone] Laxmi Cantrell, AUTO DAMAGE ADJUSTER, ZIGZAGGER Anemia due to vitamin B12 deficiency, unspecified B12 deficiency type (Primary Dx); Iron deficiency anemia, unspecified iron deficiency anemia type 03/26/2025 Travel 01/31/2025 Results Follow-Up [facility] [place] [address] [facility] [address] [place] [phone] Roque Roman D, DO FOLIC ACID (FOLATE), FERRITIN, IRON W/ IRON BINDING CAPACITY [place], Additional followed-up results: 3 01/29/2025 2:15 PM CDT Lab [facility] [address] [phone] Lab, [facility] [place] Iron deficiency anemia, unspecified iron deficiency anemia type; Anemia due to vitamin B12 deficiency, unspecified B12 deficiency type 01/29/2025 1:30 PM CDT Office Visit [facility] [address] [phone] Kimberlee Luis, AUTO DAMAGE ADJUSTER, ZIGZAGGER Anemia due to vitamin B12 deficiency, unspecified B12 deficiency type (Primary Dx); Iron deficiency anemia, unspecified iron deficiency anemia type; Chronic fatigue 01/29/2025 Travel 01/08/2025 10:00 AM CDT Clinical Support [facility] [address] [phone] Iron deficiency anemia, unspecified iron deficiency anemia type (Primary Dx) 01/08/2025 Travel 01/03/2025 Results Follow-Up [facility] [address] [place] [phone] Roque Roman, DO FOLIC ACID (FOLATE), VITAMIN B12, IRON W/ IRON BINDING CAPACITY [place], Additional followed-up results: 3 01/03/2025 Telephone [facility] [address] [phone] Roque Roman, 01/01/2025 2:45 PM CDT Lab [facility] [address] [phone] Lab, [facility] Iron deficiency anemia, unspecified iron deficiency anemia type 01/01/2025 2:30 PM CDT Office Visit [facility] [address] [phone] Roque Roman, Iron deficiency anemia, unspecified iron deficiency anemia [...] on file Legal Sex Female 11:17 AM DAY SPA MANAGER Gender Identity Not on file Sexual Orientation Not on file Last Filed Vital Signs Vital Sign Reading Time Taken Comments Blood Pressure 140/80 03/26/2025 1:12 PM CDT Pulse 60 03/26/2025 1:12 PM CDT Temperature 36.5 C (97.7 F) 03/26/2025 1:12 PM CDT Respiratory Rate 18 03/26/2025 1:12 PM CDT Oxygen Saturation 96% 03/26/2025 1:12 PM CDT Inhaled Oxygen Concentration - - Weight 73.2 kg (161 lb 4.8 oz) 03/26/2025 1:12 P M CDT Height 154.9 cm (5' 1) 03/26/2025 1:12 PM CDT Body Mass Index 30.48 03/26/2025 1:12 PM CDT Plan of Treatment Upcoming Encounters Date Type Department Care Team (Late st Contact Info) Description 06/25/2025 1:30 PM CDT Office Visit [facility] [address] [place] [phone] Roque Roman DO [address] [place] [phone] Health Maintenance Due Date Last Done Comments DEXA Bone Density 1950 Hepatitis C Virus (HCV) Screening 1950 TdaP Immunization 1950 Cologuard 1997 Colonoscopy 1997 Colorectal Cancer Screening 1997 Immunochemical Fecal Occult Blood 1997 Pneumococcal Immunization (5 0+ years) (1 of [...] Comments CBC WITH AUTO DIFF OH Routine 03/26/2025 1:30 PM CDT CMP (COMPREHENSIVE METABOLIC PANEL) Routine 03/26/2025 1:30 PM CDT Anemia due to vitamin B12 deficiency, unspecified B12 deficiency type Iron deficiency anemia, unspecified iron deficiency anemia type VITAMIN B12 Routine 03/26/2025 1:30 PM CDT Anemia due to vitamin B12 deficiency, unspecified B12 deficiency type Iron deficiency anemia, unspecified iron deficiency anemia type FOLIC ACID (FOLATE) Routine 03/26/2025 1 :30 PM CDT Anemia due to vitamin B12 deficiency, unspecified B12 deficiency type Iron deficiency anemia, unspecified iron deficiency anemia type FERRITIN Routine 03/26/2025 1:30 PM CDT Anemia due to vitamin B12 deficiency, unspecified B12 deficiency type Iron deficiency anemia, unspecified iron deficiency anemia type IRON W/ IRON BINDING CAPACITY OH Routine 03/26/2025 1:30 PM CDT Anemia due to vitamin B12 deficiency, unspecified B12 deficiency type Iron deficiency anemia, unspecified iron deficiency anemia type CBC WITH AUTO DIFF OH Routine 01/29/2025 [...] * IRON W/ IRON BINDING CAPACITY [place] (03/26/2025 1:30 PM CDT) Only the most recent of3 resultswithin the time period is included. IRON 68 50 - 212 ug/dL [facility] UIBC 202 155 - 355 ug/dL [facility] TIBC 270 261 - 478 ug/dl [facility] % Saturation 25 20 - 50 % [facility] 03/26/2025 1:30 PM CDT [facility] - 03/26/2025 2:14 PM CDT Release to patient->Immediate Laxmi D Cantrell AUTO DAMAGE ADJUSTER, ZIGZAGGER LAB SEND OUTS Final Result [facility] [place] [address], * (ABNORMAL) CBC WITH AUTO DIFF [place] (03/26/2025 1:30 PM CDT) Only the most recent of3 resultswithin the time period is included. WBC 7.3 4.0 - 10.0 10*3/uL [facility] HGB 12.4 11.2 - 15.7 g/dL [facility] HCT 39.3 34.1 - 44.9 % [facility] PLT 257 163 - 369 10*3/uL [facility] MPV 10.1 9.4 - 12.4 fL [facility] RBC 4.13 3.93 - 5.22 10*6/uL [facility] MCV 95 79 - 95 fL [facility] MACH[facility] MCH 30.0 25.6 - 32.2 pg [facility]ING [facility] MCHC 31.6(L) 32.2 - 36.5 g/dL [facility]OUNTING MACH[facility] RDW 14.8(H) 11.6 - 14.4 % [facility] Neutrophils % 61.0 36.0 - 66.0 % [facility] Lymphocytes % 23.9 19.0 - 40.0 % [facility] Monocytes % 10.3 4.1 - 12.1 % [facility]OUNT[facility] Eosinophils % 3.7(H) 0.0 - 3.5 % [facility]OUNTING MACH[facility] Basophils % 1.0 0.0 - 1.0 % [facility]OUNTING [facility]ACH[facility] Absolute Neutrophils 4.5 1.4 - 6.6 10*3/uL [facility] Absolute Lymphocytes 1.8 0.8 - 4.0 10*3/uL [facility]OUNTING [facility] Absolute Monocytes 0.8 0.2 - 1.2 10*3/uL [facility] Absolute Eosinophils 0.3 0.0 - 0.4 10*3/uL [facility]OUNTING [facility]ACH[facility] Absolute Basophils 0.1 0.0 - 0.1 10*3/uL [facility] 03/26/2025 1:30 PM CDT us Laxmi Cantrell APRN, ZENAIDA LAB SEND OUTS Final Result Performing Organization Address [facility]/ZIP Co de Phone Number CANCER MOUNTING MACHINE [facility]PER[facility] [address] [place] [address], * VITAMIN B12 (03/26/2025 1:30 PM CDT) Only the most recent of3 resultswithin the time period is included. Vitamin B12 269 180 - 914 pg/mL [facility] Blood 03/26/2025 1:30 PM CDT Narrative [facility] - 03/27/2025 2:09 PM CDT Release to patient->Immediate us Laxmi Cantrell APRN, ZIGZAGGER CHEMISTRY ORDERABLES Final Result Performing Organization Address [facility] Co de Phone Number [facility] Cancer Care [address] [place] [address], * FOLIC ACID (FOLATE) (03/26/2025 1:30 PM CDT) Only the most recent of3 resultswithin the time period is included. Folate >20.00 >=5.90 ng/mL [facility] Blood 03/26/2025 1:30 PM CDT Narrative [facility] - 03/27/2025 2:09 PM CDT Release to patient->Immediate IS THE PATIENT REQUIRED TO BE FASTING FOR 12 HOURS?->No us Laxmi Cantrell APRN, ZIGZAGGER CHEMISTRY ORDERABLES Final Result Performing Organization Address [facility] Co de Phone Number [facility] [address] [place] [address], * FERRITIN (03/26/2025 1:30 PM CDT) Only the most recent of3 resultswithin the time period is included. Ferritin 93 11 - 307 ng/mL [facility] MOUNTING MACHINE OPERATOR [facility] Blood 03/26/2025 1:30 PM CDT Narrative [facility] - 03/27/2025 2:09 PM CDT Release to patient->Immediate Laxmi Cantrell AUTO DAMAGE ADJUSTER, ZIGZAGGER CHEMISTRY ORDERABLES Final Result [facility]OUNTING [facility] [address] [place] [address], * (ABNORMAL) CMP (COMPREHENSIVE METABOLIC PANEL) (03/26/2025 1:30 PM CDT) Only the most recent of2 resultswithin the time period is included. Glucose 91 70 - 105 mg/dL [facility] Blood Urea Nitrogen 12 7 - 25 mg/dL [facility] Creatinine 1.1 0.6 - 1.2 mg/dL [facility] Sodium 142 136 - 145 mEq/L [facility] Potassium 4.0 3.5 - 5.1 mEq/L [facility] Chloride 106 98 - 107 mEq/L [facility] Bicarbonate 30 21 - 31 mEq/L [facility] Total Bilirubin 0.5 0.3 - 1.0 mg/dL [facility] Alk. Phosphatase 91 34 - 104 U/L [facility] Aspartate Aminotransferase 14 13 - 39 U/L [facility] Alanine Aminotransferase 10 7 - 52 U/L [facility] Total Protein 6.4 6.4 - 8.9 g/dL [facility] Albumin 4.1 3.5 - 5.7 g/dL [facility] Calcium 9.8 8.6 - 10.3 mg/dL [facility]ING [facility] Anion Gap 10.0 7.0 - 15.0 mEq/L [facility] Globulin 2.3 2.0 - 3.5 g/dL [facility]OUNTING MACHINE OPER[facility] EGFR 53(L) >60 ml/min/1. 73m2 CAN[facility]OUNTING MACHINE OPERATOR [facility] Comment: This eGFR is calculated using 2020 CKD-EPI Creatinine equation without race modifier based on the NKF-ASN task force recommendations Equation: lERH=319*min(SCr/k,1)a*max(SCr/k,1)-1.200*0.9938Age*1.012 (if female), where SCr is serum creatinine, k is 0.7 for females and 0.9 for males, and a is -0.241 for females and -0.302 for males Blood 03/26/2025 1:30 PM CDT Narrative [facility] - 03/26/2025 2:14 PM CDT Release to patient->Immediate IS THE PATIENT REQUIRED TO BE FASTING FOR 8 HOURS?->No Laxmi Cantrell APRN, ZIGZAGGER CHEMISTRY ORDERABLES Final Result Performing Organization Address [facility] de Phone Number [facility] [place] [place] [address], [place] [phone] * (ABNORMAL) LACTATE DEHYDROGENASE (LD) (01/01/2025 2:50 PM CDT) LDH 132(L) 140 - 271 U/L [facility] Blood 01/01/2025 2:50 PM CDT Narrative [facility]ING [facility] - 01/01/2025 4:12 PM CDT Release to patient->Immediate Roque Roman DO CHEMISTRY ORDERABLES Final Res ult Performing Organization Address [facility] Co de Phone Number [facility] [place] [place] [address], [place] [phone] from Last 3 Months Insurance [place]ICA[place] [employer] Care Teams Loan Administrator Relationship Specialty Start Date End Date Deborah Hale MD [address] [place] [id number] PCP - General Family Medicine 12/14/24 Roque Roman DO [address] [place] [phone] Consulting Physician Oncology 12/14/24
[2025-03-28 06:15] VITALS: BP 180/68; PULSE 56; TEMP 36.6; O2SAT 97
[2025-03-28] MEDS: LACTATED RINGERS 1,000 ML 30 ML IV CONT (06:30)
--- NOTE | 2025-03-28 06:43 | P.PNAN_ITS ---
Anes - Initial Pre Proc Eval Procedure: Operation Date: 03/28/25 07:30 Proposed Procedures p Left Total Knee Arthroplasty - Morgan Watt MD Date/Time: 03/28/25 06:43 Surgeon: Morgan Watt MD Pre Op Diagnosis: left knee pain Patient Data Age: 74 Gender: F Height: 1.55 m Weight: 72.7 kg Last Vital Signs Temp 36.5 C 03/18/25 13:20 Pulse 53 L 03/18/25 13:20 Resp 16 03/18/25 13:20 BP 174/80 H 03/18/25 14:00 Pulse Ox 97 03/18/25 13:20 O2 Del Method Room Air 03/18/25 13:20 Allergies Allergy/AdvReac Type Severity Reaction Status Date / Time iohexol (From contrast - CT, Allergy KIDNEY Verified 03/18/25 13:10 X-RAY) FAILURE penicillin G Allergy HIVES Verified 03/18/25 13:10 adhesive tape AdvReac Unknown PAPER Verified 03/27/25 07:21 TAPE=REDNESS, SKIN IRRITATION propoxyphene (From Darvon) AdvReac NAUSEA, Verified 03/18/25 13:10 VOMITING Home Medications ?Medication ?Instructions ?Recorded ?Confirmed ?Type aripiprazole 10 mg tablet 10 mg PO QAM 03/18/25 03/18/25 History aspirin 81 mg tablet,delayed 81 mg PO DAILY 03/18/25 03/18/25 History release (Adult Low Dose Aspirin) atorvastatin 40 mg tablet 40 mg PO DAILY 03/18/25 03/18/25 History duloxetine 60 mg capsule,delayed 60 mg PO QAM 03/18/25 03/18/25 History release famotidine 20 mg tablet 20 mg PO Q12H 03/18/25 03/18/25 History ferrous sulfate 325 mg (65 mg 325 mg PO BID 03/18/25 03/18/25 History iron) tablet (FeroSul) folic acid 1 mg tablet 1,000 mcg PO DAILY 03/18/25 03/18/25 History levothyroxine 100 mcg tablet 100 mcg PO QAM 03/18/25 03/18/25 History lisinopril 10 mg tablet 10 mg PO QAM 03/18/25 03/18/25 History metoprolol succinate 50 mg 50 mg PO HS 03/18/25 03/18/25 History tablet,extended release 24 hr tramadol 50 mg tablet 100 mg PO BID 03/18/25 03/18/25 History Patient hx anesthesia problems: none Family hx anesthesia problems: none Results Review: All pre-operative results and documents have been reviewed as part of the pre- operative evaluation. [facility] Past Medical History Medical History (Updated 03/27/25 @ 09:26 by Roberto Montes DO) Hypothyroidism GERD (gastroesophageal reflux disease) DANICA (obstructive sleep apnea) Hyperlipidemia Hypertension Social History Social History Smoking status: Never smoker Living arrangements: with family Additional living arrangements comments: [facility] STAYING WITH PATIENT Spiritual care concerns: No Comments Patient has very audible murmur consistent with aortic stenosis. Patient states this is being worked up and may need to have her valve replaced. Echo report and cardiology progress note not available. Patient canceled until further work up or reports available. Anes - Eval Final PreProcedure Day of Procedure 03/28/25 06:43 Anesthetic plan: delay (cancel )
[2025-03-28] MEDS: VANCOMYCIN 1,000 MG/NS 250 ML BAG 250 MG IVPB (07:00)
--- NOTE | 2025-03-28 08:21 | SUR.PREOP ---
patient reports recent cardiac testing and results are not available after conversation with Dr Montes and Dr Watt decision to cancel today and reschedule at later date.
--- NOTE | 2025-03-28 08:58 | SUR.PREOP ---
Patient is being discharged home and will follow up at a later time to reschedule. IV removed at 0820 and patients discharge information was discussed at 0830. Patient is just awaiting ride home from daughter.
[2025-03-28 09:00] VITALS: BMI 30.4
== END | disposition home or self-care (01) ==
PROVIDERS: PCP Family Medicine; Visit Provider Orthopaedic Surgery
DX: M25.562 Pain in left knee (principal); E78.5 Hyperlipidemia, unspecified; I10 Essential (primary) hypertension; E03.9 Hypothyroidism, unspecified; K21.9 Gastro-esophageal reflux disease without esophagitis; G47.33 Obstructive sleep apnea (adult) (pediatric); Z79.82 Long term (current) use of aspirin; Z79.891 Long term (current) use of opiate analgesic
CPT/HCPCS: 99213; G0463; J0171; J1885; J2270; J2795; J3370; J7120